=== PATIENT | female | born 1945 | race Caucasian/White ===

== ENCOUNTER 2017-08-13 19:47 | Emergency (ER) | payer MEDICARE, MEDICAID ==
[2017-08-13 20:22] VITALS: BP 114/75
--- NOTE | 2017-08-13 20:35 | UC ---
Respiratory Complaint HPI - HPI Summary HPI Summary: C/O cough x4 days with more SOB. Need increased oxygen. Nasal congestion. No nausea but some diarrhea in colostomy bag. Some chills. - History of Current Complaint Chief Complaint: UCGeneralIllness Stated Complaint: RUNNY NOSE,FATIGUE,DIARRHEA Time Seen by Provider: 08/13/17 20:29 Hx Obtained From: Patient Onset/Duration: Sudden Onset, Lasting Days - 4, Still Present Severity Initially: Mild Severity Currently: Moderate Pain Intensity: 0 Character: Cough: Productive - clear sputum Alleviating Factors: Nothing Associated Signs And Symptoms: Positive: Chills, URI, Nasal Congestion - Allergies/Home Medications Allergies/Adverse Reactions: Allergies Allergy/AdvReac Type Severity Reaction Status Date / Time MS Latex [Latex] Allergy Hives Verified 08/13/17 20:03 MS Morphine [Morphine] Allergy Unknown Verified 08/13/17 20:03 Reaction Details MS Tetracycline AdvReac GI Upset Verified 08/13/17 20:03 [Tetracycline] Home Medications: Home Medications Antibiotic 1 tab PO SEE INSTRUCTIONS 08/13/17 [History Confirmed 08/13/17] Ascorbic Acid TAB* [Vitamin C TAB*] 500 mg PO DAILY 08/13/17 [History Confirmed 08/13/17] Cyanocobalamin TAB* [Vitamin B12 TAB*] 250 mcg PO DAILY 08/13/17 [History Confirmed 08/13/17] Levalbuterol HFA INHALER* [Xopenex Hfa Inhaler*] 2 puff INH Q4H PRN 08/13/17 [ History Confirmed 08/13/17] Magnesium Oxide TAB* [MagOx 400 TAB*] 400 mg PO DAILY 08/13/17 [History Confirmed 08/13/17] Umeclidin/Vilant 62.5 MDI(NF) [ANORO 62.5/25 Ellipta DEVICE (NF)] 1 inh INH DAILY 08/13/17 [History Confirmed 08/13/17] PMH/Surg Hx/FS Hx/Imm Hx Respiratory History: COPD - Surgical History Surgical History: Yes Surgery Procedure, Year, and Place: ILEOSTOMY AND REVERSAL; RESECTION/COLOSTOMY ; R ROTOR CUFF SX; CYST REMOVED FROM RIGHT FOOT(NEUROMA? REMOVED FROM LEFT FOOT) ; CARPAL TUNNEL RELEASE RIGHT HAND. REMOVAL OF SKIN CANCERS FROM RIGHT SHOULDER AND NOSE. [facility]--2015 - Family History Known Family History: Positive: Diabetes - Social History Occupation: Retired Alcohol Use: None Substance Use Type: None Smoking Status (MU): Former Smoker Length of Time of Smoking/Using Tobacco: APPROX 45 YRS Have You Smoked in the Last Year: Yes When Did the Patient Quit Smoking/Using Tobacco: 06/2014 - Immunization History Most Recent Influenza Vaccination: SEVERL YRS AGO Most Recent Tetanus Shot: UNKNOWN Most Recent Pneumonia Vaccination: WITHIN 5 YRS Review of Systems Constitutional: Chills ENT: Nasal Discharge Respiratory: Shortness Of Breath, Cough Gastrointestinal: Diarrhea Is Patient Immunocompromised?: No All Other Systems Reviewed And Are Negative: Yes Physical Exam Triage Information Reviewed: Yes Appearance: No Pain Distress, Well-Nourished, Ill-Appearing - mild Vital Signs: Initial Vital Signs Temp 98.2 F 08/13/17 20:14 Pulse 98 08/13/17 20:14 Resp 20 08/13/17 20:14 BP 114/75 08/13/17 20:14 Pulse Ox 94 08/13/17 20:14 Vital Signs Reviewed: Yes Eyes: Positive: Conjunctiva Clear ENT: Positive: Pharynx normal, TMs normal Neck exam: Normal Respiratory: Positive: Decreased breath sounds, Wheezing - diffuse expiratory wheeze Cardiovascular Exam: Normal Musculoskeletal Exam: Normal Neurological Exam: Normal Psychological Exam: Normal Skin: Positive: rashes - psoriasis UC Diagnostic Evaluation - Laboratory O2 Sat by Pulse Oximetry: 94 Respiratory Course/Dx - Differential Dx/Diagnosis Differential Diagnosis/HQI/PQRI: Bronchitis, Exacerbation Of COPD, Lower Resp Infection, Sinusitis Provider Diagnoses: Acute URI. COPD with acute exacerbation. Discharge - Discharge Plan Condition: Stable Disposition: HOME Prescriptions: Albuterol 2.5MG/3ML (0.083%)* [Ventolin 2.5 MG/3 ML NEB.ANGELY*] 2.5 mg INH Q6H PRN #25 neb.angely PRN Reason: Wheezing Ipratropium 0.5MG/2.5ML NEB* [Atrovent 0.5 MG NEB.ANGELY*] 0.5 mg INH Q6H PRN #25 neb.soln PRN Reason: Sob/Wheezing predniSONE TAB* [Deltasone TAB*] 20 mg PO DAILY #18 tab Sulfamethox/Trimethoprim DS* [Bactrim DS 800/160 TAB*] 1 tab PO BID #20 tab Patient Education Materials: Upper Respiratory Infection (ED), Emphysema (ED), Prednisone (By mouth), Sulfamethoxazole/Trimethoprim (By mouth) Referrals: Jesus Landrum MD [Primary Care Provider] - 5 Days (Recheck breathing.)
[2017-08-13] MEDS ORDERED: predniSONE TAB* 20 MG PO ONE (20:38)
[2017-08-13] MEDS ORDERED: Albuterol/Ipratropium NEB.SOL* Albuterol 2.5 MG/Ipratropium 0.5 MG 3 ML INH ONE (20:38)
[2017-08-13] MEDS ORDERED: Sulfamethox/Trimethoprim DS 800/160* TAB PO ONE (20:38)
== END 2017-08-13 21:19 | disposition home or self-care (01) ==
LOC: UCCORT 19:47
DX: J06.9 Acute upper respiratory infection, unspecified (principal); J44.1 Chronic obstructive pulmonary disease with (acute) exacerbation; Z88.8 Allergy status to other drugs, medicaments and biological substances; Z88.1 Allergy status to other antibiotic agents; Z91.040 Latex allergy status
CPT/HCPCS: 99213; A9270-GY; G0463; J7512

== ENCOUNTER 2018-06-03 20:32 | Emergency (ER) | payer MEDICARE, MEDICAID ==
[2018-06-03 20:45] VITALS: BP 91/69
--- NOTE | 2018-06-03 21:16 | UC ---
Syncope/New Syncope HPI - HPI Summary HPI Summary: fell 2 nights ago has right rib pain---no memory of fall of any complaints prior to fall - History Of Current Complaint Chief Complaint: UCGeneralIllness Stated Complaint: RIB INJ,S/P FALL 2 AM WED Time Seen by Provider: 06/03/18 20:34 Hx Obtained From: Patient ?: No Onset/Duration: Sudden Onset, Lasting Days - 2 Activity At Onset: At Rest Timing: Constant Frequency: Episodes x___ - 1 Context: Unwitnessed Associated Head Trauma: No Pain Intensity: 10 Pain Scale Used: 0-10 Numeric Aggravating Factor(s): Nothing Alleviating Factor(s): Nothing Associated Signs And Symptoms: Positive: Diarrhea, Pain, Shortness Of Breath - Allergies/Home Medications Allergies/Adverse Reactions: Allergies Allergy/AdvReac Type Severity Reaction Status Date / Time MS Latex [Latex] Allergy Hives Verified 08/13/17 20:03 MS Morphine [Morphine] Allergy Unknown Verified 08/13/17 20:03 Reaction Details MS Tetracycline AdvReac GI Upset Verified 08/13/17 20:03 [Tetracycline] Home Medications: Home Medications Amitriptyline TAB* [Elavil TAB*] 25 mg PO BEDTIME 06/03/18 [History Confirmed ] Azithromycin TAB* [Zithromax TAB (Z-CHICHO) 250 mg #6 tabs] 250 mg PO SEE INSTRUCTIONS 06/03/18 [History Confirmed 06/03/18] Fluticasone NASAL SPRAY 50MCG* [Flonase NASAL SPRAY 50MCG*] 2 spray BOTH NARES DAILY PRN 06/03/18 [History Confirmed 06/03/18] LevoCETirizine TAB (NF) [Xyzal TAB (NF)] 5 mg PO DAILY PRN 06/03/18 [History Confirmed 06/03/18] PMH/Surg Hx/FS Hx/Imm Hx Previously Healthy: No Cardiovascular History: Congestive Heart Failure Respiratory History: COPD - Surgical History Surgical History: Yes Surgery Procedure, Year, and Place: ILEOSTOMY AND REVERSAL; RESECTION/COLOSTOMY ; R ROTOR CUFF SX; CYST REMOVED FROM RIGHT FOOT(NEUROMA? REMOVED FROM LEFT FOOT) ; CARPAL TUNNEL RELEASE RIGHT HAND. REMOVAL OF SKIN CANCERS FROM RIGHT SHOULDER AND NOSE. [facility]--2014 - Family History Known Family History: Positive: Diabetes - Social History Occupation: Retired Lives: Alone Alcohol Use: Rare Substance Use Type: None Smoking Status (MU): Former Smoker Length of Time of Smoking/Using Tobacco: APPROX 45 YRS Have You Smoked in the Last Year: Yes When Did the Patient Quit Smoking/Using Tobacco: 06/2014 - Immunization History Most Recent Influenza Vaccination: SEVERL YRS AGO Most Recent Tetanus Shot: UNKNOWN Most Recent Pneumonia Vaccination: WITHIN 5 YRS Review of Systems All Other Systems Reviewed And Are Negative: Yes Constitutional: Positive: Negative Skin: Positive: Negative Eyes: Positive: Negative ENT: Positive: Negative Respiratory: Positive: Shortness Of Breath Cardiovascular: Positive: Negative Gastrointestinal: Positive: Diarrhea Genitourinary: Positive: Negative Motor: Positive: Negative Neurovascular: Positive: Negative Musculoskeletal: Positive: Arthralgia Neurological: Positive: Negative Psychological: Positive: Negative Is Patient Immunocompromised?: No Physical Exam Triage Information Reviewed: Yes Appearance: Well-Nourished, Ill-Appearing, Pain Distress Vital Signs: Initial Vital Signs Temp 97.1 F 06/03/18 20:40 Pulse 108 06/03/18 20:40 Resp 20 06/03/18 20:40 BP 91/69 06/03/18 20:40 Pulse Ox 99 06/03/18 20:40 Vital Signs Reviewed: Yes Eye Exam: Normal Eyes: Positive: Conjunctiva Clear ENT Exam: Normal ENT: Positive: Normal ENT inspection, Hearing grossly normal. Negative: Trismus , Muffled voice, Hoarse voice Dental Exam: Normal Neck exam: Normal Neck: Positive: Supple, Nontender Respiratory: Positive: Lungs clear, Normal breath sounds, No respiratory distress, No accessory muscle use, Other: - right chest wall tender to touch. Negative: Chest non-tender Cardiovascular: Positive: No Murmur, Pulses Normal, Brisk Capillary Refill, Tachycardia Abdominal Exam: Normal Abdomen Description: Positive: Nontender, No Organomegaly, Soft Bowel Sounds: Positive: Present Musculoskeletal Exam: Normal Musculoskeletal: Positive: Strength Intact, ROM Intact, No Edema Neurological Exam: Normal Neurological: Positive: Alert, Muscle Tone Normal Psychological Exam: Normal Skin Exam: Normal Diagnostics - EKG Cardiac Rate: Tachycardia Cardiac Rhythm: Sinus: Normal Ectopy: None ST Segment: Non-Specific EKG Comparison: No Significant Change Syncope Course/Dx - Course Course Of Treatment: to ED with friend driving (refused EMS) - Differential Dx/Diagnosis Provider Diagnosis: Syncope, Hypotension, Diarrhea, Rib pain on right side Discharge - Sign-Out/Discharge Documenting (check all that apply): Patient Departure All imaging exams completed and their final reports reviewed: No Studies - Discharge Plan Condition: Guarded Disposition: HOME-RECOMMEND TO ED Patient Education Materials: Syncope (ED) Referrals: Jesus Landrum MD [Primary Care Provider] - - Billing Disposition and Condition Condition: GUARDED Disposition: Home-Recommend to ED
== END 2018-06-03 21:13 | disposition home health service (06) ==
LOC: UCCORT 20:32
DX: R55 Syncope and collapse (principal); I95.9 Hypotension, unspecified; R19.7 Diarrhea, unspecified; Z88.5 Allergy status to narcotic agent; Z88.1 Allergy status to other antibiotic agents; Z87.891 Personal history of nicotine dependence; Z85.828 Personal history of other malignant neoplasm of skin
CPT/HCPCS: 99212; G0463

== ENCOUNTER 2018-06-12 18:29 | Emergency (ER) | payer MEDICARE, MEDICAID ==
[2018-06-12] MEDS ORDERED: diPHENhydraMINE PO* 25 MG PO ONE (18:33)
[2018-06-12] MEDS ORDERED: methylPREDNISolone 125 MG* 2 ML VIAL IM ONE (18:33)
[2018-06-12 18:34] VITALS: BP 134/80
--- OUTSIDE RECORDS SUMMARY | 2018-06-12 18:45 | XMS REPORT | Continuity of Care Document ---
:1945 External Reference #:[id number] Author Name Jesus Landrum M.D. Address [address] [facility] [address] [place] [address] Care Team Providers Name Role Phone Jesus Landrum MD Care Team Information Site Head Unavailable Payers Type Date Identification Numbers Payment Provider Subscriber Expires: 2018 Policy Number: [id number] Medicare Mirtha V Machado PayID: [id number] [address] [place] [address] Effective: 2008 Policy Number: [id number] Medicare Mirtha V Machado PayID: [id number] [address] [place] [address] Policy Number: [id number] Medicaid After Medicare Mirtha Mayas Group Name: 2 1 [id number] [facility] PayID: [id number] [place] [address] Advance Directives Description No Information Available Problems Date Description Provider Status Onset: 09/02/2011 Degeneration of cervical Jesus Landrum M.D. Active intervertebral disc Onset: 09/02/2011 Neck pain Jesus Landrum M.D. Active Onset: 09/02/2011 Anxiety state Jesus Landrum M.D. Active Onset: 09/02/2011 Chronic obstructive lung disease Jesus Landrum M.D. Active Onset: 09/02/2011 Osteoarthritis Jesus Landrum M.D. Active Onset: 09/06/2011 Low back pain Jesus Landrum M.D. Active Onset: 09/06/2011 Colostomy and enterostomy Anupam Soto Active malfunction Onset: 09/12/2012 Congestive heart failure Jesus Landurm M.D. Active Onset: 09/12/2012 Edema Jesus Landrum M.D. Active Onset: 11/02/2013 Wears bifocal glasses Jesus Landrum M.D. Active Onset: 11/02/2013 Contact dermatitis Jesus Landrum M.D. Active Onset: 11/02/2013 Allergic rhinitis Jesus Landrum M.D. Active Onset: 11/02/2013 Shoulder joint pain Jesus Landrum M.D. Active Onset: 04/30/2014 Hypokalemia Jesus Landrum M.D. Active Onset: 04/30/2014 Disorder of magnesium metabolism Jesus Landrum M.D. Active Onset: 04/30/2014 Depressive disorder Jesus Landrum M.D. Active Onset: 04/30/2014 Acute exacerbation of chronic Jesus Landrum M.D. 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 Resolved Resolved: 08/08/2014 Family History Date Family Member(s) Problem(s) Comments Father due to at age 84 () Father due to Unknown Causes () Mother due to Unknown Causes () Mother due to at age 58 () Children 4 living Children 2 miscarages Children 3 lost to sids First Son Hypertension First Son 52 Second Son 48 Second Son Alcoholism First Daughter No Current Problems First Daughter 42 Second Daughter 38 Siblings 7 First Brother 65 First Brother Diabetes First Brother Rheumatoid Arthritis First Brother Leukemia First Sister Breast Cancer Second Sister partial removal of intestines Social History Type Date Description Comments Sex Unknown Marital Status Legal Status: ETOH Use Denies alcohol use Tobacco Use Start: Unknown End: Unknown Patient is a former smoker Allergies, Adverse Reactions, Alerts Date Description Reaction Status Severity Comments 09/02/2011 Morphine Active 09/02/2011 Tetracycline Active 03/30/2013 Latex Active Medications Medication Date Status Form Strength Qnty SIG Indications Ordering Provider Oxycodone-[place] Active Tablets 5-325mg 45tabs 1 tab by R07.9 Diallo taminophen 018 mouth Jesus Morrison, three M.D. times a day as needed Vancomycin Hx Capsules 125mg 1 cap by A04.71 Diallo, HCL 018 - mouth Jesus Morrison, four M.D. 018 times a day Sertraline Active Tablets 50mg 30tabs Take One F41.9 Diallo, HCL 018 Tablet By Jesus Morrison, Mouth M.D. Every Day Trelegy Active Aerosol 100-62.5-25 1 by Rebekah44.9 Diallo Ellipta 018 mcg/Inh mouth Jesus Morrison, every M.D. day-Pulmo nary J44.9 J44.1 Aircondition 12/13/2017 Active PT with h/O Jesus [place] severe COPD Tobi Morrison Anoro Ellipta 08/18/2017 Active Aerosol 62.5-25 60units 1 by mouth R06.02 Kamala Landrummad mcg/Inh every M., M.D. day-Pulmonar y Rosalva.Mona J44.1 Lotrisone 04/26/2017 Active Cream 1-0.05% 45gm apply small B35.4 Kamala Landrummad amount to Tobi Morrison affected area every 12 hours for 2 weeks Portable O2 08/20/2016 Active use during out JHunter.9 Kamala Landrummad Concentrators. of home Tobi Morrison activity jHunter.Mona,r09.02,r 06.02 R09.02 R06.02 Amitriptyline HCL 03/11/2016 Active Tablets 25mg 90tabs Take One R10.84 Diallo, Tablet By Jesus Morrison Mouth M.DRobert Every Day Walker [place] 11/12/2015 Active Misc -06/27" 1units use as M15.9 Diallo, Wheels/5 directed( Jesus Morrison, Adjustment abbie Britton -06/27" with wheels,bra kes and basket) DX :M15.9,J44 .9 Xopenex HFA 10/03/2015 Active Aerosol 45mcg/Ac 30gm 2 puffs R06.02 Diallo, t every 4 Jesus Morrison, hours as M.D. needed J44.1 J44.9 Manual 03/05/2015 Active 1units use as directed dx:r26.8 M25.552 Diallo, Wheel 9,r26.81,m25.522,m79.606 Jesus Morrison, Chair m15.9,i50.42 M.D. R29.898 Pep Device 10/08/2014 Active 1units use as directed R06.02 Jesus Landrum M.D. Incentive 10/01/2014 Active use as directed R06.02 Jesus Landrum Spirometer Tobi Morrison R05 J44.9 Ammonium Lactate 08/08/2014 Active Cream 12% 385gm apply to L20.9 Diallo , Ahmad affected area Tobi Morrison twice a day as needed L23.9 Potassium 04/24/2014 Active Tablets ER 10Meq 90tabs Take One E87.6 Diallo, Chloride ER Tablet By Jesus Morrison, Mouth Every M.D. Day I50.42 Conserving Oxygen 08/21/2013 Active at setting of 2 J44.1 Jesus Landrum, Device liters M.DRobert J44.9 Magnesium 03/02/2013 Active Tablets 400(241.3mg) mg 90tabs Take One E83.42 Diallo, Oxide Tablet Ahmad By Mouth M.PrinceDRobert Every Day Tums Ultra 07/27/2012 Active Chewtabs 1000mg 1 by M81.0 Diallo, 1000 mouth Ahmad twice a M., M.D. day Furosemide 07/27/2012 Active Tablets 20mg 90tabs Take One I50.42 Diallo, Tablet Ahmad By Mouth Prince MorrisonDRobert Every Day R60.0 Clobetasol 04/03/2012 Active Ointment 0.05% 60gm apply to L40.9 Diallo, Propionate affected arae( Ahmad M., abd.and arms M.D. and legs) twice a day as needed L20.9 Xanax 10/14/2011 Active Tablets 0.5mg 45tabs 1 tab by F41.9 Diallo, mouth three Ahmad M., times a day M.D. as needed Multi 09/02/2011 Active Tablets Diallo, Vitamin/[place] Jesus Morrison, als Full Luis M.Andrew Spectrum Vitamin B-12 09/02/2011 Active Tablets ER 1000mcg 1 every day D51.1 Diallo, CR Jesus Morrison M.D. 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 a b s Prednisone 05/18/2018 Hx Tablets 20mg 2 2 tab by mouth J20.9 Diallo, - 0 daily 4 Ahmad 06/02/2018 t days,30x3d,20x2d Tobi Morrison a ,10x7d b s Prednisone 03/30/2018 Hx Tablets 20mg 2 2 tab by mouth J20.9 Diallo, - 0 daily 4 Ahmad 04/05/2018 t days,30x3d,20x2d Tobi Morrison a ,10x7d b s Ciprofloxacin 03/30/2018 Hx Tablets 500mg 2 1 by mouth twice J20.9 Diallo, HCL - 0 a day Ahmad 04/10/2018 kyle Morrison M.D. a b s Methylprednisol 03/30/2018 Hx Solution 125mg J20.9 Diallo, one - Rec Ahmad Sodiumsuccinate 03/31/2018 Tobi Morrison Amoxicillin 03/07/2018 Hx Tablets 500mg 3 1 by mouth three J01.40 Diallo , - 0 times a day Ahmad 03/17/2018 Tobi Jean Baptiste b s Prednisone 03/07/2018 Hx Tablets 20mg 8 2 tab by mouth J01.40 Diallo, - t daily 4 days Ahmad 03/10/2018 Tobi Geronimo Amoxicillin 11/03/2017 Hx Tablets 500mg 3 1 by mouth three E55.9 Diallo, - 0 times a day Ahmad 11/13/2017 Tobi Jean Baptiste b s Bactrim DS 11/01/2017 Hx Tablets 800-160mg 2 1 tab by mouth E55.9 Diallo , - 0 twice a day Ahmad 11/03/2017 Tobi Jean Baptiste b s Prednisone 11/01/2017 Hx Tablets 20mg 8 2 tab by mouth E55.9 Diallo, - t daily 4 days Ahmad 11/04/2017 Tobi Geronimo s Zoloft 11/01/2017 Hx Tablets 50mg 3 1 by mouth every F41.9 Diallo, - 0 day Ahmad 04/25/2018 kyle Morrison M.D. a b s Amoxicillin 09/02/2017 Hx Tablets 500mg 4 2 by mouth twice J44.9 Diallo, - 0 a day Ahmad 09/12/2017 kyle Morrison M.D. a b s Bupropion HCL 08/18/2017 Hx Tablets ER 150mg 3 Take One Tablet E55.9 Diallo, ER (XL) - 24HR 0 By Mouth Every Ahmad 11/01/2017 t Rossy Morrison M.D. a b s Phendimetrazine 04/26/2017 Hx Tablets 35mg 6 1 tab by mouth E66.3 Diallo , Tartrate - 0 twice a day Ahmad 07/01/2017 kyle Morrison M.D. a b s Fluconazole 04/14/2017 Hx Tablets 150mg 2 1 tab by mouth J44.9 Diallo, - t and october Ahmad 04/19/2017 a repeat in 1 week Tobi Morrison b s Prednisone 03/03/2017 Hx Tablets 20mg 2 2 tab by mouth J44.9 Diallo, - 0 daily 4 Ahmad 03/17/2017 t days,30x3d,20x2d Tobi Morrison a ,10x7d b s Amoxicillin 03/03/2017 Hx Tablets 500mg 4 2 by mouth twice J44.9 Diallo, - 0 a day Ahmad 03/13/2017 t Tobi Morrison a b s Prednisone 01/11/2017 Hx Tablets 10mg 6 Take 1 Tablet By J44.9 Diallo, - 0 Mouth Three Ahmad 08/18/2017 t Times Per Week Tobi Morrison a b s Azithromycin 12/09/2016 Hx Tablets 250mg 1 1 tab by mouth J44.9 Diallo, - 4 three times a Ahmad 03/20/2017 t wk-pulmonary Tobi Morrison a b s Prednisone 10/12/2016 Hx Tablets 20mg 2 2 tab by mouth J44.9 Diallo, - 0 daily 4 Ahmad 10/17/2016 t days,30x3d,20x2d Tobi Morrison a ,10x7d b s Azithromycin 10/12/2016 Hx Tablets 500mg 1 1 by mouth every Diallo, - 0 day Ahmad 10/17/2016 t Tobi Morrison a b s Amoxicillin 09/21/2016 Hx Tablets 500mg 6 2 tab by mouth J44.9 Diallo, - 0 twice a day X10d Ahmad 10/17/2016 t then 1 tab po Tobi Morrison a daily b s E55.9 Prednisone 09/21/2016 - Hx Tablets 20mg 20tabs 2 tab by mouth daily 4 J44.9 Diallo, 10/07/2016 days,30x3d,20x2d,10x7d Ahmad Tobi Morrison Prednisone 08/13/2016 - Hx Tablets 20mg 20tabs 2 tab by mouth daily 4 J44.9 Diallo, 08/28/2016 days,30x3d,20x2d,10x7d Ahyolette Morrsion M.D. Amoxicillin 08/03/2016 - Hx Tablets 500mg 60tabs 2 tab by mouth twice a J44.9 [facility], 08/18/2016 day X10d then 1 tab po Ahmad daily Tobi Morrison E55.9 Diflucan 08/03/2016 - Hx Tablets 100mg 20tabs 1 by mouth [facility], [facility] 08/13/2016 twice a day Tobi Morrison Amoxicillin 07/13/2016 - Hx Tablets 500mg 60tabs 2 tab by J44.9 [facility], [facility] 08/01/2016 mouth three Tobi Morrison times a day E55.9 Bactrim DS 07/08/2016 - Hx Tablets 800-160mg 20tabs 1 tab by J44.9 [facility] mouth twice Tobi Morrison a day Prednisone 07/08/2016 - Hx Tablets 20mg 20tabs 2 tab by 44.9 [facility] 07/[facility]2016 mouth daily Tobi Morrison 4 days,30x3d, 20x2d,10x7d Amoxicillin 06/22/2016 - Hx Tablets 500mg 60tabs 2 tab by 44.9 [facility] 07/[facility]2016 mouth three Tobi Morrison times a day E55.9 Prednisone 06/22/2016 - Hx Tablets 20mg 18tabs 2 tab by mouth daily 4 J44.9 [facility], 07/05/2016 days, 30 Ahmad mgx3d,[id number],67ywe7h Tobi Morrison Azithromycin 05/31/2016 - Hx Tablets 500mg 10tabs 1 by mouth every day [facility], 06/10/2016 Jesus Morrison M.D. Cipro 05/20/2016 - Hx Tablets 500mg 20tabs 1 tab by mouth twice a J44.9 [facility], 05/21/2016 day Jesus Morrison M.D. Prednisone 05/20/2016 - Hx Tablets 20mg 20tabs 2 tab by mouth daily 4 R06.02 [facility], 06/04/2016 days,30x3d,20x2d,10x7d Tobi Klein E55.Mona Amoxicillin 05/20/2016 - Hx Tablets 500mg 60tabs 2 tab by Omero [facility] 05/29/2016 mouth three Tobi Morrison times a day E55.9 Cipro 02/06/2016 - Hx Tablets 500mg 30tabs 1 tab by mouth Omero [facility], 02/18/2016 twice a day Jesus Morrison M.D. Lotrisone 02/06/2016 - Hx Cream 1-0.05% 45gm apply small [facility], 08/03/2016 amount to angie Klein M.D. every 12 hours for 2 weeks Zoloft 02/06/2016 - Hx Tablets 50mg 90tabs 1 by mouth F33.9 [facility], 02/19/2016 every day Jesus Morrison M.D. Cipro 01/15/2016 - Hx Tablets 500mg 20tabs 1 tab by mouth Omero [facility], 01/25/2016 twice a day Jesus Morrison M.D. Prednisone 12/04/2015 - Hx Tablets 20mg 20tabs 2 tab by mouth R06.02 [facility], 12/18/2015 daily 4 Jesus Morrison, days,30x3d,20x M.D. 2d,10x7d Omero E55.9 Amoxicillin 12/04/2015 - Hx Tablets 500mg 60tabs 2 tab by Omero [facility] 12/14[facility]2015 mouth three Tobi Morrison times a day E55.9 Wheelchair 12/04/2015 - Hx Misc 1units Use For R26.89 [facility], [facility] 06/20/2016 Terry Morrison M.D. Amoxicillin 10/30/2015 - Hx Tablets 500mg 60tabs 2 tab by mouth Omero [facility] 11/09/2015 three times a Tobi Morrison day E55.9 Prednisone 10/30/2015 - Hx Tablets 20mg 20tabs 2 tab by mouth daily 4 R06.02 [facility], 11/13/2015 days,30x3d,20x2d,10x7d Tobi Klein9 E55.9 Stiolto 10/03/2015 - Hx Aerosol 2.5-2.5mcg/Act 12gm two puffs Omero [facility], [facility]02/2018 [facility] M.DRobert Jamil J44.1 Amoxicillin 07/29/2015 - Hx Tablets 500mg 60tabs 2 tab by Omero [facility] 08/08/2015 mouth three Tobi Morrison times a day Levaquin 06/26/2015 - Hx Tablets 500mg 10tabs 1 by mouth Omero [facility], [facility] 07/06/2015 every day Tobi Morrison Prednisone 06/26/2015 - Hx Tablets 20mg 20tabs 2 tab by R06.02 [facility] 07/22/2015 mouth daily Tobi Morrison 4 days,30x3d,2 0x2d,10x7d JRoselia9 Tramadol HCL 06/26/2015 - Hx Tablets 50mg 90tabs 1 by mouth M25.552 [facility] 10/18/2017 every 4 M., Luis M.D. hours as needed M54.5 M54.2 Levaquin 04/03/2015 - Hx Tablets 500mg 10tabs 1 by mouth J44Lazarus [facility], 04/13/2015 every day Jesus Morrison M.D. Hydrocodone-Ac 03/03/2015 - Hx Tablets 7.5-325mg 90tabs 1-2 tab by M54.5 [facility], etaminophen 04/01/2015 mouth every [facility] Prince, 4 hours as M.D. needed M25.511 M25.552 Prednisone 02/10/2015 - Hx Tablets 20mg 50tabs 2 tab by mouth daily 4 843.0 [facility], 03/01/2015 days,30x3d,20x2d,10x7d Jesus Morrison M.D. Azithromycin 11/07/2014 - Hx Tablets 250mg 12tabs take two tablets by 491.21 [facility], 11/17/2014 mouth as one dose on Ahmad the first day then take M., one daily M.DRobert 382.9 461.8 Prednisone 10/08/2014 - Hx Tablets 20mg 20tabs 2 tab by mouth daily 4 491.21 Diallo, 11/22/2014 days,30x3d,20x2d,10x7d Jesus Morrison M.D. 496 786.05 Diflucan 07/23/2014 - Hx Tablets 100mg 20tabs 1 by mouth 112.1 [facility] 08[facility]2014 twice a day Tobi Morrison 110.5 Cipro 07/09/2014 - Hx Tablets 500mg 20tabs 1 by mouth 491.21 [facility] 10/21/2014 twice a day Tobi Morrison 466.0 461.9 Tamiflu 07/09/2014 - Hx Capsules 75mg 10caps 1 cap by [facility], 07/14/2014 mouth twice a Jesus Morrison, day M.D. Azithromycin 04/30/2014 - Hx Tablets 250mg 1pack z ze uad 491.2 Diallo, 06/23/2014 1 Jesus Morrison M.D. Lotrisone 01/24/2014 - Hx Cream 1-0.05% 45gm apply small 110.5 [facility], 07/22/2014 amount to angie Klein area M.DRobert every 12 hours for 2 weeks 112.1 Avelox 01/22/2014 - Hx Tablets 400mg 7tabs TAke 1 tablet 491.1 Artemio 02/19/2014 by mouth for JOHN Colby 7 days Prednisone 01/22/2014 - Hx Tablets 20mg 14tabs take 2 491.21 [facility] 06/[facility]2014 tablets by Tobi Morrison mouth once daily for 7 days 478.19 786.05 K-Tab 11/02/2013 - Hx Tablets ER 10Meq 60tabs 2 tabs by 276.8 Earnestine Ulloa, 04/24/2014 mouth 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 Rolling Walker 08/20/2013 - Hx 1uni uad M15.9 Diallo, With Seat 11/12/2015 ts Jesus Morrison M.D. Nystatin 08/20/2013 - Hx Powder 244546Cgx 45gm apply to 110.3 Diallo, 10/18/2013 t/GM clean, dry Jesus Morrison, areas bid M.DRobert prn. 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 Tobi Morrison Prednisone 05/03/2013 - Hx Tablets 20mg 20tabs 2 tab by 491.21 Diallo, Ahmad 05/19/2013 mouth daily Tobi Morrison 4 days,30x3d, 20x2d,10x7d 491.21 786.05 Clarithromycin 05/03/2013 - Hx Tablets 500mg 20tabs 1 po bid 491.21 Diallo, Ahmad 06/23/2014 Tobi Morrison 491.21 Zyrtec Allergy 05/03/2013 - Hx Tablets 10mg 30tabs 1 by mouth J30.2 Diallo, Ahmad 01/18/2018 every day Tobi Morrison Clarithromycin 03/30/2013 - Hx Tablets 500mg 20tabs 1 po bid 461.9 Diallo, mad 04/09/2013 Tobi Morrison 491.21 Prednisone 03/30/2013 - Hx Tablets 20mg 20tabs 2 tab by mouth daily 4 461.9 Diallo, 04/17/2013 days,30x3d,20x2d,10x7d Jesus Morrison M.D. 491.21 786.05 Solu-Medrol 03/30/2013 - Hx Solution Rec 125mg 1units given L 491.21 Diallo, 03/31/2013 deltoid Jesus Morrison M.D. Klor-Con 10 03/30/2013 - Hx Tablets ER 10Meq 60tabs 2 tabs by 790.6 Diallo, 05/03/2013 mouth qd Jesus Morrison M.D. Biaxin 03/01/2013 - Hx Tablets 500mg 20tabs 1 tab by 786.05 Diallo, 03/11/2013 mouth twice Jesus Morrison, a day x10 M.DRobert days 466.0 Sulfamethoxazole/Trimethoprim 02/28/2013 Hx Tablets 800-160mg 20tabs 1 po 682.8 Diallo, DS - bid Ahmad 03/01/2013 Tobi Morrison Klor-Con M20 02/22/2013 Hx Tablets 20Meq 30tabs 1Tab 276.8 Diallo, - ER PO mad 03/30/2013 irwin Gomez M.D. Pulmonary Function Testing 02/21/2013 Hx as 491.21 [facility], - dire Ahmad 05/22/2013 ramos Morrison M.D. Prednisone 02/12/2013 Hx Tablets 20mg 18tabs 2 491.21 [facility], - tab mad 03/03/2013 by tha Morrison M.D. h ailyn y 4 days ,30x 3d,2 0x2d ,10x 7d Azithromycin 02/12/2013 Hx Tablets 250mg 1Pack 2 po 491.21 [facility], - toda mad 02/17/2013 y gena Morrison M.D. 1 po next 4 days Biaxin 01/05/2013 Hx Tablets 500mg 20tabs 1 786.05 [facility], - tab mad 01/19/2013 by tha Morrison M.D. h twic e a day x10 days 466.0 Hydrocodone/Acetaminophen 01/05/2013 - Hx Tablets 5-325mg 90tabs 1-2 723.1 Diallo, 02/19/2013 tabs po Ahmad q 4-6 Tobi Morrison hours prn pain 724.2 Medrol Dosepak 01/05/2013 - Hx Tablets 4mg 1Pack take as 786.05 [facility], 01/12/2013 directed Jesus Morrison M.D. Lipitor 12/12/2012 - Hx Tablets 20mg 30tabs 1 Tab PO QHS 272.0 [facility], 12/18/2012 Jesus Morrison M.D. Paxil 09/12/2012 - Hx Tablets 20mg 30tabs 1 by mouth 300.00 Diallo, 09/26/2012 every day Jesus Morrison M.D. Prednisone 08/29/2012 - Hx Tablets 20mg 30tabs 1/2 tab by 491.21 Diallo, 11/20/2012 mouth every Jesus Morrison, day Qday Tobi 496 Biaxin 08/29/2012 - Hx Tablets 500mg 20tabs 1 tab by Diallo yolette 12/04/2012 mouth twice Tobi Morrison a day x10 days Biaxin 07/25/2012 - Hx Tablets 500mg 20tabs 1 tab by 491.21 Diallo, Jesus 08/05/2012 mouth twice Tobi Morrison a day x10 days Biaxin 07/13/2012 - Hx Tablets 500mg 20tabs 1 tab by 491.21 Diallo, mad 07/24/2012 mouth twice Tobi Morrison a day x10 days Prednisone 07/13/2012 - Hx Tablets 20mg 20tabs 2 tab by 491.21 Diallo, maelio 11/24/2012 mouth daily Tobi Morrison 4 days,30x3d,2 0x2d,10x7d 478.19 786.05 Solu-Medrol 07/13/2012 - Hx Solution Rec 125mg given r 491.21 Diallo, 07/14/2012 deltoid Jesus Morrison M.D. Ceftriaxone 07/13/2012 - Hx Solution Rec 1gm given r 491.21 Diallo, Sodium 07/13/2012 buttock im Jesus Morrison M.D. Effexor XR 04/17/2012 - Hx Caps ER 24HR 37.5mg 30ca 1 po qd Diallo, 07/13/2012 ps Jesus Morrison M.D. Lovaza 04/05/2012 - Hx Capsules 1gm 60ca 1 PO bid Diallo, 11/20/2012 ps Jesus Morrison M.D. Nicoderm CQ 04/03/2012 - Hx Patches 24HR 21mg/24HR 21un use as Diallo, 07/13/2012 its directed Jesus Morrison M.D. Lasix 04/03/2012 - Hx Tablets 20mg 30ta 1 by mouth Diallo, 07/13/2012 bs every day Jesus Morrison M.D. Zithromax Z-Ze 03/10/2012 - Hx Tablets 250mg 1Pac 1 pack use 786.2 Diallo, 07/11/2012 k as directed Jesus Morrison M.D. Tessalon 03/10/2012 - Hx Capsules 200mg 30ca 1 po tid prn 786.2 Diallo, 07/13/2012 ps cough x 10 Jesus Morrison, days Luis M.DRobert Prednisone 03/10/2012 - Hx Tablets 20mg 60ta 2 tab by 491.21 Diallo, 07/23/2012 bs mouth daily Austenelio Luis M., 4 M.D. days,30x3d,2 0x2d,10x7d Biaxin 01/04/2012 - Hx Tablets 500mg 20ta 1 tab by 491.21 [facility], 01/14/2012 bs mouth twice Ahmad M., a day x10 M.D. days Prednisone 01/04/2012 - Hx Tablets 20mg 50ta 2 tab by 491.21 [facility], 01/14/2012 bs mouth daily Ahmad M., 4 M.D. days,30x3d,2 0x2d,10x7d Lotrisone 01/04/2012 - Hx Cream 1-0.05% 45gm apply to 110.5 Diallo, 09/25/2012 affected Austenelio Prince, area tid x M.D. 14 days 692.9 Hydrocodone/Acetaminophen 11/25/2011 - Hx Tablets 5-325mg 90tabs 1-2 722.4 [facility], 11/20/2012 tabs po Ahmad q 4-6 Tobi Morrison hours prn pain 723.1 724.2 Zithromax 11/25/2011 - Hx Tablets 250mg 1Pack 1 pack use as Diallo, Z-Ze 07/10/2012 directed Jesus Morrison M.D. Aspirin 09/02/2011 - Hx Tablets DR 81mg 428.0 [facility], 04/17/2012 Jesus Morrison M.D. Vitamin C SR 09/02/2011 - Hx Capsules ER 500mg 1 every day 477.8 [facility] , 07/13/2012 Jesus Morrison M.D. Zoloft 09/02/2011 - Hx Tablets 100mg 45tabs 1-2 every day 300.0 [facility], 04/17/2012 0 Jesus Morrison M.D. 311 Tramadol HCL 09/02/2011 - Hx Tablets 50mg 90tabs 1 every 4 724.2 [facility] hours Tobi Morrison 719.41 719.45 Ketoconazole 09/02/2011 - Hx Cream 2% 2 twice a 692.9 Diallo, yolette 04/03/2012 day Tobi Morrison Perforomist 09/02/2011 - Hx Nebulizer 20mcg/2ML 496 Jesus Landrum 02/19/2013 Tobi Morrison Prednisone 09/02/2011 - Hx Tablets 20mg 496 Jesus Landrum 09/12/2011 Tobi Morrison 491.21 786.05 Diflucan 09/02/2011 - Hx Tablets 100mg 20tabs 1 bid 569.69 Jesus Landrum 10/24/2011 Tobi 110.5 Medications Administered in Office Medication Date Status Form Strength Qnty SIG Indications Ordering Provider Solu-Medrol Administered Injection Diallo, 125MG Sherita Morrison M.D. B12 Administered Injection Diallo, Sherita Morrison M.D. B12 Administered Injection Diallo, Sherita Morrison M.D. B12 Administered Injection Diallo, Sherita Morrison M.D. B12 Administered Injection Diallo, Sherita Morrison M.D. B12 Administered Injection Diallo, 017 Jesus Morrison M.D. B12 Administered Injection Diallo, 017 Jesus Morrison M.D. Solu-Medrol Administered Injection Hansel, 125MG 013 JOHN Charles Solu-Medrol Administered Injection Diallo, 125MG Nathan Morrison M.D. Rocephin 250 Administered Injection Diallo, Nathan Morrison M.D. Immunizations CPT Code Status Date Vaccine Lot # [id number] Given 03/10/2011 Flu Vaccine 3+Yrs Old(Fluzone) [id number] Refused 02/21/2015 Flu Vaccine Vital Signs Date Vital Result Comment 06/06/2018 3:41pm BP Systolic 118 mmHg BP Diastolic 64 mmHg Height 61 inches 5'1" Weight 150.00 lb BMI (Body Mass Index) 28.3 kg/m2 Heart Rate 104 /min Respiratory Rate 16 /min 05/18/2018 3:41pm BP Systolic 126 mmHg BP Diastolic 70 mmHg Height 61 inches 5'1" Weight 150.00 lb BMI (Body Mass Index) 28.3 kg/m2 Heart Rate 123 /min Respiratory Rate 18 /min 03/30/2018 3:56pm BP Systolic 118 mmHg BP Diastolic 62 mmHg Height 61 inches 5'1" Weight 150.00 lb BMI (Body Mass Index) 28.3 kg/m2 Heart Rate 115 /min Respiratory Rate 16 /min 03/07/2018 3:42pm BP Systolic 128 mmHg BP Diastolic 78 mmHg Height 61 inches 5'1" Weight 152.00 lb BMI (Body Mass Index) 28.7 kg/m2 Heart Rate 102 /min Body Temperature 98.5 F Respiratory Rate 16 /min 02/02/2018 3:59pm BP Systolic 132 mmHg BP Diastolic 78 mmHg Height 61 inches 5'1" Weight 148.00 lb BMI (Body Mass Index) 28.0 kg/m2 Heart Rate 100 /min Respiratory Rate 16 /min 01/12/2018 1:10pm BP Systolic 118 mmHg BP Diastolic 68 mmHg Height 61 inches 5'1" Weight 148.00 lb BMI (Body Mass Index) 28.0 kg/m2 Heart Rate 94 /min Respiratory Rate 16 /min 12/13/2017 2:09pm BP Systolic 132 mmHg BP Diastolic 68 mmHg Height 61 inches 5'1" Weight 151.00 lb BMI (Body Mass Index) 28.5 kg/m2 Heart Rate 102 /min Respiratory Rate 18 /min 11/01/2017 2:23pm BP Systolic 140 mmHg BP Diastolic 88 mmHg Height 61 inches 5'1" Weight 153.00 lb BMI (Body Mass Index) 28.9 kg/m2 Heart Rate 99 /min Respiratory Rate 18 /min 08/18/2017 3:45pm BP Systolic 138 mmHg BP Diastolic 78 mmHg Height 61 inches 5'1" Weight 151.00 lb BMI (Body Mass Index) 28.5 kg/m2 Heart Rate 106 /min Respiratory Rate 18 /min 08/03/2017 3:08pm BP Systolic 138 mmHg BP Diastolic 72 mmHg Height 61 inches 5'1" Weight 153.00 lb BMI (Body Mass Index) 28.9 kg/m2 Heart Rate 88 /min Respiratory Rate 18 /min 07/01/2017 1:50pm BP Systolic 118 mmHg BP Diastolic 68 mmHg Height 61 inches 5'1" Weight 155.00 lb BMI (Body Mass Index) 29.3 kg/m2 Heart Rate 94 /min Respiratory Rate 16 /min 05/26/2017 1:43pm BP Systolic 126 mmHg BP Diastolic 72 mmHg Height 61 inches 5'1" Weight 152.00 lb BMI (Body Mass Index) 28.7 kg/m2 Heart Rate 73 /min Respiratory Rate 18 /min 04/26/2017 2:34pm BP Systolic 128 mmHg BP Diastolic 82 mmHg Height 61 inches 5'1" Weight 152.00 lb BMI (Body Mass Index) 28.7 kg/m2 Heart Rate 99 /min Respiratory Rate 16 /min 04/14/2017 2:10pm BP Systolic 118 mmHg BP Diastolic 68 mmHg Height 61 inches 5'1" Weight 151.00 lb BMI (Body Mass Index) 28.5 kg/m2 Heart Rate 85 /min Respiratory Rate 16 /min 03/03/2017 1:46pm BP Systolic 122 mmHg BP Diastolic 70 mmHg Height 61 inches 5'1" Weight 148.00 lb BMI (Body Mass Index) 28.0 kg/m2 Heart Rate 102 /min Respiratory Rate 18 /min 01/11/2017 2:14pm BP Systolic 124 mmHg BP Diastolic 74 mmHg Height 61 inches 5'1" Weight 148.00 lb BMI (Body Mass Index) 28.0 kg/m2 Heart Rate 78 /min Respiratory Rate 18 /min 12/09/2016 1:36pm BP Systolic 108 mmHg BP Diastolic 62 mmHg Height 61 inches 5'1" Weight 150.00 lb BMI (Body Mass Index) 28.3 kg/m2 Heart Rate 66 /min Respiratory Rate 16 /min 09/21/2016 1:56pm BP Systolic 132 mmHg BP Diastolic 72 mmHg Height 61 inches 5'1" Weight 148.00 lb BMI (Body Mass Index) 28.0 kg/m2 Heart Rate 98 /min Body Temperature 97.2 F Respiratory Rate 16 /min 09/07/2016 1:42pm BP Systolic 138 mmHg BP Diastolic 82 mmHg Height 61 inches 5'1" Weight 149.00 lb BMI (Body Mass Index) 28.2 kg/m2 Heart Rate 126 /min Respiratory Rate 20 /min 08/03/2016 3:16pm BP Systolic 140 mmHg BP Diastolic 82 mmHg Height 61 inches 5'1" Weight 150.00 lb BMI (Body Mass Index) 28.3 kg/m2 Heart Rate 99 /min Body Temperature 97.3 F Respiratory Rate 18 /min 07/08/2016 11:06am BP Systolic 108 mmHg BP Diastolic 68 mmHg Height 61 inches 5'1" Weight 147.00 lb BMI (Body Mass Index) 27.8 kg/m2 Heart Rate 113 /min Respiratory Rate 18 /min 06/22/2016 2:00pm BP Systolic 106 mmHg BP Diastolic 68 mmHg Height 61 inches 5'1" Weight 147.00 lb BMI (Body Mass Index) 27.8 kg/m2 Heart Rate 73 /min Respiratory Rate 16 /min 05/20/2016 1:36pm BP Systolic 142 mmHg BP Diastolic 74 mmHg Height 61 inches 5'1" Weight 143.00 lb BMI (Body Mass Index) 27.0 kg/m2 Heart Rate 61 /min Respiratory Rate 18 /min 03/11/2016 3:30pm BP Systolic 118 mmHg BP Diastolic 64 mmHg Height 61 inches 5'1" Weight 140.00 lb BMI (Body Mass Index) 26.4 kg/m2 Heart Rate 82 /min Respiratory Rate 18 /min 02/06/2016 3:25pm BP Systolic 130 mmHg BP Diastolic 78 mmHg Height 61 inches 5'1" Weight 139.00 lb BMI (Body Mass Index) 26.3 kg/m2 Heart Rate 94 /min Respiratory Rate 22 /min 01/15/2016 11:33am BP Systolic 116 mmHg BP Diastolic 70 mmHg Height 61 inches 5'1" Weight 137.00 lb BMI (Body Mass Index) 25.9 kg/m2 Heart Rate 96 /min Respiratory Rate 20 /min 12/04/2015 2:45pm BP Systolic 130 mmHg BP Diastolic 68 mmHg Height 61 inches 5'1" Heart Rate 64 /min Respiratory Rate 15 /min 10/30/2015 10:32am BP Systolic 116 mmHg BP Diastolic 78 mmHg Height 61 inches 5'1" Weight 139.00 lb BMI (Body Mass Index) 26.3 kg/m2 Heart Rate 76 /min Respiratory Rate 17 /min 10/13/2015 9:11am BP Systolic 117 mmHg BP Diastolic 79 mmHg Height 61 inches 5'1" Weight 138.00 lb BMI (Body Mass Index) 26.1 kg/m2 Heart Rate 88 /min Respiratory Rate 18 /min 10/03/2015 10:31am BP Systolic 114 mmHg BP Diastolic 77 mmHg Height 61 inches 5'1" Weight 140.00 lb BMI (Body Mass Index) 26.4 kg/m2 Heart Rate 89 /min Respiratory Rate 18 /min 07/29/2015 2:08pm BP Systolic 111 mmHg BP Diastolic 76 mmHg Height 61 inches 5'1" Weight 138.00 lb BMI (Body Mass Index) 26.1 kg/m2 Heart Rate 99 /min Body Temperature 95.9 F Respiratory Rate 18 /min 06/26/2015 2:37pm BP Systolic 121 mmHg BP Diastolic 67 mmHg Height 61 inches 5'1" Weight 138.00 lb BMI (Body Mass Index) 26.1 kg/m2 Heart Rate 98 /min Body Temperature 96.6 F Respiratory Rate 18 /min 04/24/2015 2:08pm BP Systolic 106 mmHg BP Diastolic 69 mmHg Height 61 inches 5'1" Weight 141.00 lb BMI (Body Mass Index) 26.6 kg/m2 Heart Rate 108 /min Body Temperature 97.8 F Respiratory Rate 18 /min 04/03/2015 11:45am BP Systolic 98 mmHg BP Diastolic 72 mmHg Height 61 inches 5'1" Weight 148.00 lb BMI (Body Mass Index) 28.0 kg/m2 Heart Rate 101 /min Body Temperature 98.2 F Respiratory Rate 18 /min 03/03/2015 2:05pm BP Systolic 109 mmHg BP Diastolic 81 mmHg Height 61 inches 5'1" Weight 148.00 lb BMI (Body Mass Index) 28.0 kg/m2 Heart Rate 95 /min Respiratory Rate 16 /min 02/21/2015 3:31pm BP Systolic 120 mmHg BP Diastolic 75 mmHg Height 61 inches 5'1" Weight 148.00 lb BMI (Body Mass Index) 28.0 kg/m2 Heart Rate 88 /min Respiratory Rate 15 /min 02/10/2015 4:15pm BP Systolic 122 mmHg BP Diastolic 80 mmHg Height 61 inches 5'1" Weight 148.00 lb BMI (Body Mass Index) 28.0 kg/m2 Heart Rate 92 /min Respiratory Rate 16 /min 01/21/2015 11:16am BP Systolic 122 mmHg BP Diastolic 78 mmHg Height 61 inches 5'1" Weight 149.00 lb BMI (Body Mass Index) 28.2 kg/m2 Heart Rate 80 /min Respiratory Rate 18 /min 11/07/2014 4:23pm BP Systolic 126 mmHg BP Diastolic 80 mmHg Height 61 inches 5'1" Weight 153.00 lb BMI (Body Mass Index) 28.9 kg/m2 Heart Rate 101 /min Body Temperature 98.1 F Respiratory Rate 20 /min 10/08/2014 4:34pm BP Systolic 158 mmHg BP Diastolic 96 mmHg Height 61 inches 5'1" Weight 146.00 lb BMI (Body Mass Index) 27.6 kg/m2 Heart Rate 108 /min Respiratory Rate 20 /min 08/08/2014 2:06pm BP Systolic 123 mmHg BP Diastolic 83 mmHg Height 61 inches 5'1" Weight 143.00 lb BMI (Body Mass Index) 27.0 kg/m2 Heart Rate 104 /min Respiratory Rate 16 /min 07/23/2014 9:54am BP Systolic 139 mmHg BP Diastolic 91 mmHg Height 61 inches 5'1" Weight 140.00 lb BMI (Body Mass Index) 26.4 kg/m2 Heart Rate 101 /min Respiratory Rate 16 /min 07/09/2014 2:34pm BP Systolic 114 mmHg BP Diastolic 81 mmHg Height 61 inches 5'1" Weight 140.00 lb BMI (Body Mass Index) 26.4 kg/m2 Heart Rate 110 /min Body Temperature 102.8 F Respiratory Rate 16 /min 04/30/2014 2:25pm BP Systolic 110 mmHg BP Diastolic 68 mmHg Height 61 inches 5'1" Weight 142.00 lb BMI (Body Mass Index) 26.8 kg/m2 Heart Rate 108 /min Respiratory Rate 18 /min 01/22/2014 2:50pm BP Systolic 111 mmHg BP Diastolic 76 mmHg Height 61 inches 5'1" Weight 143.00 lb BMI (Body Mass Index) 27.0 kg/m2 Heart Rate 101 /min Body Temperature 97.7 F Respiratory Rate 20 /min 11/02/2013 2:18pm BP Systolic 110 mmHg BP Diastolic 72 mmHg Height 61 inches 5'1" Weight 149.00 lb BMI (Body Mass Index) 28.2 kg/m2 Heart Rate 91 /min Respiratory Rate 18 /min 09/06/2013 3:34pm BP Systolic 137 mmHg BP Diastolic 86 mmHg Height 61 inches 5'1" Weight 149.00 lb BMI (Body Mass Index) 28.2 kg/m2 Heart Rate 103 /min Respiratory Rate 18 /min 08/20/2013 1:34pm BP Systolic 124 mmHg BP Diastolic 60 mmHg Height 61 inches 5'1" Weight 151.00 lb BMI (Body Mass Index) 28.5 kg/m2 Heart Rate 74 /min Body Temperature 97.0 F Respiratory Rate 22 /min 08/01/2013 2:23pm BP Systolic 138 mmHg BP Diastolic 86 mmHg Height 61 inches 5'1" Weight 156.00 lb BMI (Body Mass Index) 29.5 kg/m2 Heart Rate 113 /min Respiratory Rate 20 /min 05/22/2013 2:07pm BP Systolic 124 mmHg BP Diastolic 76 mmHg Height 61 inches 5'1" Weight 154.00 lb BMI (Body Mass Index) 29.1 kg/m2 Heart Rate 110 /min Body Temperature 97.1 F Respiratory Rate 22 /min 05/03/2013 3:59pm BP Systolic 152 mmHg BP Diastolic 95 mmHg BP Systolic Recheck 100 mmHg BP Diastolic Recheck 70 mmHg Height 61 inches 5'1" Weight 153.00 lb BMI (Body Mass Index) 28.9 kg/m2 Heart Rate 116 /min 03/30/2013 2:34pm BP Systolic 118 mmHg BP Diastolic 80 mmHg Height 61 inches 5'1" Weight 152.00 lb BMI (Body Mass Index) 28.7 kg/m2 Heart Rate 100 /min Body Temperature 98.1 F Respiratory Rate 22 /min 02/28/2013 9:25am BP Systolic 106 mmHg BP Diastolic 64 mmHg Height 61 inches 5'1" Weight 145.00 lb BMI (Body Mass Index) 27.4 kg/m2 Heart Rate 103 /min Respiratory Rate 20 /min 02/21/2013 10:43am BP Systolic 104 mmHg BP Diastolic 62 mmHg Height 61 inches 5'1" Weight 143.00 lb BMI (Body Mass Index) 27.0 kg/m2 Heart Rate 81 /min Body Temperature 98.9 F Respiratory Rate 18 /min 02/12/2013 3:44pm BP Systolic 112 mmHg BP Diastolic 74 mmHg Height 61 inches 5'1" Weight 148.00 lb BMI (Body Mass Index) 28.0 kg/m2 Heart Rate 98 /min Body Temperature 99.9 F Respiratory Rate 22 /min 01/05/2013 10:36am BP Systolic 126 mmHg BP Diastolic 80 mmHg Height 61 inches 5'1" Weight 152.00 lb BMI (Body Mass Index) 28.7 kg/m2 Heart Rate 100 /min Body Temperature 97.6 F Respiratory Rate 20 /min 12/12/2012 3:17pm BP Systolic 142 mmHg BP Diastolic 80 mmHg Height 61 inches 5'1" Weight 151.00 lb BMI (Body Mass Index) 28.5 kg/m2 Heart Rate 116 /min Body Temperature 99.1 F Respiratory Rate 22 /min 11/23/2012 3:00pm BP Systolic 106 mmHg BP Diastolic 74 mmHg Height 61 inches 5'1" Weight 151.00 lb BMI (Body Mass Index) 28.5 kg/m2 Heart Rate 76 /min Body Temperature 98.1 F Respiratory Rate 20 /min 10/26/2012 3:21pm BP Systolic 92 mmHg BP Diastolic 68 mmHg Height 61 inches 5'1" Weight 143.00 lb BMI (Body Mass Index) 27.0 kg/m2 Heart Rate 93 /min Body Temperature 98.8 F Respiratory Rate 16 /min 09/26/2012 2:25pm BP Systolic 110 mmHg BP Diastolic 80 mmHg Height 61 inches 5'1" Weight 148.00 lb BMI (Body Mass Index) 28.0 kg/m2 Heart Rate 120 /min Respiratory Rate 22 /min 09/12/2012 2:09pm BP Systolic 130 mmHg BP Diastolic 60 mmHg Height 61 inches 5'1" Weight 147.00 lb BMI (Body Mass Index) 27.8 kg/m2 Heart Rate 116 /min Respiratory Rate 14 /min 08/29/2012 3:17pm BP Systolic 132 mmHg BP Diastolic 80 mmHg Height 61 inches 5'1" Weight 148.00 lb BMI (Body Mass Index) 28.0 kg/m2 Heart Rate 95 /min Respiratory Rate 24 /min 07/25/2012 2:21pm BP Systolic 112 mmHg BP Diastolic 70 mmHg Height 61 inches 5'1" Weight 139.00 lb BMI (Body Mass Index) 26.3 kg/m2 Heart Rate 99 /min Body Temperature 97.3 F Respiratory Rate 16 /min 07/13/2012 1:57pm BP Systolic 120 mmHg BP Diastolic 84 mmHg Height 61 inches 5'1" Weight 137.00 lb BMI (Body Mass Index) 25.9 kg/m2 Heart Rate 90 /min Body Temperature 96.7 F Respiratory Rate 18 /min 04/17/2012 1:14pm BP Systolic 100 mmHg BP Diastolic 70 mmHg Height 61 inches 5'1" Weight 138.00 lb BMI (Body Mass Index) 26.1 kg/m2 Heart Rate 88 /min Respiratory Rate 20 /min 04/03/2012 2:17pm BP Systolic 112 mmHg BP Diastolic 70 mmHg Height 61 inches 5'1" Weight 138.00 lb BMI (Body Mass Index) 26.1 kg/m2 Heart Rate 80 /min Respiratory Rate 20 /min 03/10/2012 1:27pm BP Systolic 130 mmHg BP Diastolic 76 mmHg Height 61 inches 5'1" Weight 132.00 lb BMI (Body Mass Index) 24.9 kg/m2 Heart Rate 80 /min Last Menstrual Period 0 Respiratory Rate 15 /min 02/18/2012 4:05pm BP Systolic 140 mmHg BP Diastolic 65 mmHg Height 61 inches 5'1" Weight 131.00 lb BMI (Body Mass Index) 24.7 kg/m2 Heart Rate 67 /min Respiratory Rate 15 /min 01/04/2012 10:39am BP Systolic 109 mmHg BP Diastolic 78 mmHg Height 61 inches 5'1" Weight 131.00 lb BMI (Body Mass Index) 24.7 kg/m2 Heart Rate 61 /min Last Menstrual Period 0 Respiratory Rate 17 /min 11/25/2011 11:17am BP Systolic 103 mmHg BP Diastolic 70 mmHg Height 61 inches 5'1" Weight 131.00 lb BMI (Body Mass Index) 24.7 kg/m2 Heart Rate 60 /min Last Menstrual Period 0 Respiratory Rate 14 /min 10/22/2011 10:21am BP Systolic 110 mmHg BP Diastolic 80 mmHg Height 61 inches 5'1" Weight 133.00 lb BMI (Body Mass Index) 25.1 kg/m2 Heart Rate 75 /min Last Menstrual Period 0 Respiratory Rate 14 /min 10/14/2011 2:39pm BP Systolic 108 mmHg BP Diastolic 75 mmHg Height 61 inches 5'1" Weight 133.00 lb BMI (Body Mass Index) 25.1 kg/m2 Heart Rate 76 /min Last Menstrual Period 0 Respiratory Rate 14 /min 09/03/2011 12:02pm BP Systolic 107 mmHg BP Diastolic 75 mmHg Height 61 inches 5'1" Weight 134.00 lb BMI (Body Mass Index) 25.3 kg/m2 Heart Rate 89 /min Results Test Date Facility Test Result H/L Range Note C. Difficile 06/03/2018 [facility] C. Difficile POSITIVE for Abnormal 1, 2 Toxin B By PCR Toxin B By PCR C.D <SEE NOTE> Recommended Therapy: ORAL VANCOMYCIN <SEE NOTE> 3 Note: DISCONTINUING BR <SEE NOTE> 4 Method: BD MAX PCR Urinalysis With Microscopic 06/03/2018 [facility] Urine Color YELLOW Yellow Urine Clarity SL CLOUDY Clear Urine Glucose - Dipstick NEGATIVE mg/dL Negative Urine Bilirubin - Dipstick NEGATIVE Negative Urine Ketone NEGATIVE mg/dL Negative Urine Specific [place] 1.020 N 1.010-1.030 Urine Blood TRACE Negative Urine PH 6.0 Low 6.5-7.5 Urine Protein - Dipstick 30 mg/dL High Negative Urine Urobilinogen - Dipstick 0.2 E.U./dL N 0.2-1.0 Urine Nitrite - Dipstick NEGATIVE Negative Urine Leuk Esterase MODERATE Abnormal Negative Urine RBC 5-10 rbc/hpf High 0-2 Urine WBC > 50 wbc/hpf High 0-7 5 Urine Epithelial Cells FEW /lpf None Seen Urine Bacteria FEW None Seen Urine Hyaline Cast >10 #/lpf None Seen Source: URINE, CLEAN CAT <SEE NOTE> 6 Laboratory test 06/03/2018 [facility] Urine Culture NO GROWTH: FINAL 7 finding <SEE NOTE> Lactic Acid 06/03/2018 [facility] Lactic Acid 2.1 mmol/L High 0.4-1.9 Lab Reflex >2.0 for Sepsis? Y CBC Auto Diff 01/12/2018 [facility] White Blood Count 6.4 10^3/uL N 3.5-10.8 Red Blood Count 4.79 10^6/uL N 4.00-5.40 Hemoglobin 14.7 g/dL N 12.0-16.0 Hematocrit 44 % N 35-47 Mean Corpuscular Volume 92 fL N 80-97 Mean Corpuscular Hemoglobin 31 pg N 27-31 Mean Corpuscular HGB Conc 34 g/dL N 31-36 Red Cell Distribution Width 13 % N 10.5-15 Platelet Count 187 10^3/uL N 150-450 Mean Platelet Volume 8.4 um3 N 7.4-10.4 Abs Neutrophils 4.1 10^3/uL N 1.5-7.7 Abs Lymphocytes 1.4 10^3/uL N 1.0-4.8 Abs Monocytes 0.7 10^3/uL N 0-0.8 Abs Eosinophils 0.1 10^3/uL N 0-0.6 Abs Basophils 0 10^3/uL N 0-0.2 Abs Nucleated RBC 0 10^3/uL Granulocyte % 64.4 % N 38-83 Lymphocyte % 21.5 % Low 25-47 Monocyte % 11.8 % High 0-7 Eosinophil % 2.0 % N 0-6 Basophil % 0.3 % N 0-2 Nucleated Red Blood Cells % 0 Comp Metabolic Panel 01/12/2018 [facility] Sodium 140 mmol/L N 135- 145 Potassium 3.7 mmol/L N 3.5-5.0 Chloride 102 mmol/L N 101-111 Co2 Carbon Dioxide 27 mmol/L N 22-32 Anion Gap 11 mmol/L N 2-11 Glucose 82 mg/dL N 70-100 Blood Urea Nitrogen 13 mg/dL N 6-24 Creatinine 1.02 mg/dL High 0.51-0.95 BUN/Creatinine Ratio 12.7 N 8-20 Calcium 9.2 mg/dL N 8.6-10.3 Total Protein 6.8 g/dL N 6.4-8.9 Albumin 4.5 g/dL N 3.2-5.2 Globulin 2.3 g/dL N 2-4 Albumin/Globulin Ratio 2.0 N 1-3 Total Bilirubin 0.70 mg/dL N 0.2-1.0 Alkaline Phosphatase 104 U/L N 34-104 Alt 20 U/L N 7-52 Ast 22 U/L N 13-39 Egfr Non- 53.0 >60 Egfr 64.1 >60 8 Lipid Profile (Trig/Chol/HDL) 01/12/2018 [facility] Triglycerides 230 mg/dL 9 Cholesterol 256 mg/dL 10 HDL Cholesterol 45.5 mg/dL 11 LDL Cholesterol 165 mg/dL 12 Laboratory test 01/12/2018 [facility] TSH (Thyroid 2.87 mcIU/mL N 0.34-5.60 13 finding Stim Horm) Hemoglobin A1c (Glyco HGB) 5.3 % N 4.0-5.6 14 Magnesium 1.9 mg/dL N 1.9-2.7 15 Vitamin D Total 25(Oh) 21.3 ng/mL N 20-50 16 CBC Auto Diff 04/22/2017 [facility] White Blood Count 6.2 10^3/uL N 3.5-10.8 17 Red Blood Count 4.52 10^6/uL N 4.0-5.4 Hemoglobin 13.8 g/dL N 12.0-16.0 Hematocrit 41 % N 35-47 Mean Corpuscular Volume 90 fL N 80-97 Mean Corpuscular Hemoglobin 31 pg N 27-31 Mean Corpuscular HGB Conc 34 g/dL N 31-36 Red Cell Distribution Width 14 % N 10.5-15 Platelet Count 217 10^3/uL N 150-450 Mean Platelet Volume 8 um3 N 7.4-10.4 Abs Neutrophils 4.2 10^3/uL N 1.5-7.7 Abs Lymphocytes 1.2 10^3/uL N 1.0-4.8 Abs Monocytes 0.6 10^3/uL N 0-0.8 Abs Eosinophils 0.2 10^3/uL N 0-0.6 Abs Basophils 0 10^3/uL N 0-0.2 Abs Nucleated RBC 0 10^3/uL N Granulocyte % 68.0 % N 38-83 Lymphocyte % 18.8 % Low 25-47 Monocyte % 9.9 % High 1-9 Eosinophil % 2.6 % N 0-6 Basophil % 0.7 % N 0-2 Nucleated Red Blood Cells % 0 N Comp Metabolic Panel 04/22/2017 [facility] Sodium 138 mmol/L N 133- 145 Potassium 4.0 mmol/L N 3.5-5.0 Chloride 100 mmol/L Low 101-111 Co2 Carbon Dioxide 31 mmol/L N 22-32 Anion Gap 7 mmol/L N 2-11 Glucose 104 mg/dL High 70-100 Blood Urea Nitrogen 13 mg/dL N 6-24 Creatinine 0.97 mg/dL High 0.51-0.95 BUN/Creatinine Ratio 13.4 N 8-20 Calcium 9.3 mg/dL N 8.6-10.3 Total Protein 6.2 g/dL Low 6.4-8.9 Albumin 3.9 g/dL N 3.2-5.2 Globulin 2.3 g/dL N 2-4 Albumin/Globulin Ratio 1.7 N 1-3 Total Bilirubin 0.90 mg/dL N 0.2-1.0 Alkaline Phosphatase 76 U/L N 34-104 Alt 14 U/L N 7-52 Ast 18 U/L N 13-39 Egfr Non- 56.3 N >60 Egfr 72.4 N >60 18 Lipid Profile 04/22/2017 [facility] Triglycerides 228 mg/dL N 19 (Trig/Chol/HDL) Cholesterol 230 mg/dL N 20 HDL Cholesterol 43.3 mg/dL N 21 LDL Cholesterol 141 mg/dL N 22 Laboratory test finding 04/22/2017 [facility] Magnesium 1.9 mg/dL N 1.9-2.7 23 CRP High Sensitivity 6.42 mg/L N 24 TSH (Thyroid Stim Horm) 3.08 mcIU/mL N 0.34-5.60 25 Vitamin B12 182 pg/mL N 180-914 26 Hemoglobin A1c (Glyco HGB) 5.5 % N 4.0-5.6 27 Comp Metabolic Panel 04/14/2017 [facility] Sodium 139 mmol/L N 133- 145 Potassium 4.2 mmol/L N 3.5-5.0 Chloride 101 mmol/L N 101-111 Co2 Carbon Dioxide 31 mmol/L N 22-32 Anion Gap 7 mmol/L N 2-11 Glucose 80 mg/dL N 70-100 Blood Urea Nitrogen 14 mg/dL N 6-24 Creatinine 0.91 mg/dL N 0.51-0.95 BUN/Creatinine Ratio 15.4 N 8-20 Calcium 9.3 mg/dL N 8.6-10.3 Total Protein 6.7 g/dL N 6.4-8.9 Albumin 4.3 g/dL N 3.2-5.2 Globulin 2.4 g/dL N 2-4 Albumin/Globulin Ratio 1.8 N 1-3 Total Bilirubin 0.60 mg/dL N 0.2-1.0 Alkaline Phosphatase 81 U/L N 34-104 Alt 16 U/L N 7-52 Ast 21 U/L N 13-39 Egfr Non- 60.6 N >60 Egfr 77.9 N >60 28 Lipid Profile 04/14/2017 [facility] Triglycerides 294 mg/dL N 29 (Trig/Chol/HDL) Cholesterol 250 mg/dL N 30 HDL Cholesterol 44.5 mg/dL N 31 LDL Cholesterol 147 mg/dL N 32 Laboratory test 04/14/2017 [facility] CRP High Sensitivity 9.61 mg/L N 33 finding TSH (Thyroid Stim Horm) 2.34 mcIU/mL N 0.34-5.60 34 Magnesium 2.1 mg/dL N 1.9-2.7 35 Hemoglobin A1c (Glyco HGB) 5.8 % High 4.0-5.6 36 Vitamin B12 227 pg/mL N 180-914 37 CBC 07/01/2016 [facility] White Blood Count 8.6 K/uL N 3.1-10.7 38 Red Blood Count 4.27 M/uL N 3.90-5.40 Hemoglobin 13.4 gm/dL N 11.6-15.8 Hematocrit 40.4 % N 36.0-46.1 Mean Cell Volume 94.6 fl N 80.9-99.0 Mean Corpuscular HGB 31.4 pg N 25.9-32.7 Mean Corpuscular HGB Conc 33.2 g/dL N 30.8-34.3 Platelet Count 216 K/uL N 155-360 Red Cell Distri Width %CV 13.7 % N 11.7-14.4 Mean Platelet Volume 8.8 fL Low 8.9-12.4 Glycohemoglobin A1c 07/01/2016 [facility] Glycohemoglobin (A1c) 5.4 % N 4.2 -6.3 39 eAG 108 mg/dL N Laboratory test finding 07/01/2016 [facility] Serum Iron 95 g/dL N 50- 170 Vitamin B12 And Folate 07/01/2016 [facility] Vitamin B12 167 pg/mL Low 193- 986 Folic Acid 15.5 ng/mL N 3.1-17.5 Comprehensive Metabolic Panel 07/01/2016 [facility] Glucose 76 mg/dL N 74- 106 BUN 20 mg/dL High 7-18 Creatinine 1.0 mg/dL N 0.6-1.3 Glom Filtration Rate, Estimate 58 mL/min N >60 If >60 mL/min N >60 40 BUN/Creat 20.0 ratio N Sodium 141 mmol/L N 136-145 Potassium 3.8 mmol/L N 3.5-5.1 Chloride 104 mmol/L N 98-107 Carbon Dioxide 34 mmol/L High 21-32 Anion Gap 3 mEq/L Low 8-16 Calcium 8.5 mg/dL N 8.5-10.1 Total Protein 7.0 g/dL N 6.4-8.2 Albumin 3.5 g/dL N 3.4-5.0 Globulin 3.5 g/dL N 1.9-4.3 Alb/Glob 1.0 ratio N Bilirubin,Total 0.5 mg/dL N 0.2-1.0 Sgot/Ast 13 U/L Low 15-37 41 SGPT/Alt 24 U/L N 12-78 Alkaline Phosphatase 112 U/L N 45-117 LDL Cholesterol Profile 07/01/2016 [facility] Cholesterol 243 mg/dL High < 200 42 Triglycerides 176 mg/dL High <150 43 HDL Cholesterol 75 mg/dL N >40 44 LDL-Cholesterol 133 mg/dL N < 100 45 Laboratory test finding 07/01/2016 [facility] Amylase 66 U/L N 25-115 Lipase 114 U/L N 73-393 CK 70 U/L N 26-192 Thyroid Stim Hormone 5.13 uIU/mL High 0.30-4.20 FSH 97.4 mIU/mL N 46 Luteinizing Hormone 34.8 mIU/mL N 47 Prolactin 16.9 ng/mL N 48 Free T3 2.78 pg/mL N 2.18-3.98 Free T4 1.03 ng/dL N 0.76-1.46 Laboratory test 07/01/2016 [facility] Estradiol,Serum < 10.7 N 49 finding pg/mL Laboratory test 07/01/2016 [facility] Vitamin D,1,25 53.1 pg/mL N 19.9- 50 finding Dihydroxy 79.3 Laboratory test 10/13/2015 [facility] Magnesium 1.8 mg/dL Low 1.9-2 51 finding .7 Hemoglobin A1c (Glyco HGB) 5.4 % N Less than 6.0 52 Vitamin D Total 25(Oh) 25.8 ng/mL Low 30-50 53 Vitamin B12 127 pg/mL Low 180-914 54 Folic Acid (Folate) 18.17 ng/mL N >3.99 55 Lipid Profile 10/13/2015 [facility] Triglycerides 169 mg/dL N 56 (Trig/Chol/HDL) Cholesterol 184 mg/dL N 57 HDL Cholesterol 43.3 mg/dL N 58 LDL Cholesterol 107 mg/dL N 59 Laboratory test 10/13/2015 [facility] TSH (Thyroid 3.01 ?IU/mL N 0.34 -5.60 60 finding Stim Horm) Comp Metabolic 10/13/2015 [facility] Sodium 138 mmol/L N 133-145 Panel Potassium 3.2 mmol/L Low 3.5-5.0 Chloride 101 mmol/L N 101-111 Co2 Carbon Dioxide 29 mmol/L N 22-32 Anion Gap 8 mmol/L N 2-11 Glucose 89 mg/dL N 70-100 Blood Urea Nitrogen 11 mg/dL N 6-24 Creatinine 1.00 mg/dL High 0.51-0.95 BUN/Creatinine Ratio 11.0 N 8-20 Calcium 9.1 mg/dL N 8.6-10.3 Total Protein 6.2 g/dL Low 6.4-8.9 Albumin 4.1 g/dL N 3.2-5.2 Globulin 2.1 g/dL N 2-4 Albumin/Globulin Ratio 2.0 N 1-3 Total Bilirubin 0.70 mg/dL N 0.2-1.0 Alkaline Phosphatase 85 U/L N 34-104 Alt 14 U/L N 7-52 Ast 18 U/L N 13-39 Egfr Non- 54.5 N >60 Egfr 70.1 N >60 61 CBC Auto Diff 10/13/2015 [facility] White Blood Count 4.0 10^3/uL N 3.5-10.8 Red Blood Count 4.45 10^6/uL N 4.0-5.4 Hemoglobin 13.1 g/dL N 12.0-16.0 Hematocrit 39 % N 35-47 Mean Corpuscular Volume 88 fL N 80-97 Mean Corpuscular Hemoglobin 30 pg N 27-31 Mean Corpuscular HGB Conc 34 g/dL N 31-36 Red Cell Distribution Width 17 % High 10.5-15 Platelet Count 216 10^3/uL N 150-450 Mean Platelet Volume 8 um3 N 7.4-10.4 Abs Neutrophils 2.5 10^3/uL N 1.5-7.7 Abs Lymphocytes 0.8 10^3/uL Low 1.0-4.8 Abs Monocytes 0.6 10^3/uL N 0-0.8 Abs Eosinophils 0.1 10^3/uL N 0-0.6 Abs Basophils 0 10^3/uL N 0-0.2 Abs Nucleated RBC 0.01 10^3/uL N Granulocyte % 62.0 % N 38-83 Lymphocyte % 20.7 % Low 25-47 Monocyte % 14.5 % High 1-9 Eosinophil % 2.6 % N 0-6 Basophil % 0.2 % N 0-2 Nucleated Red Blood Cells % 0.2 N CBC Auto Diff 04/24/2015 [facility] White Blood Count 5.0 K/uL 3.1-10.7 Red Blood Count 4.33 M/uL 3.90-5.40 Hemoglobin 13.0 gm/dL 11.6-15.8 Hematocrit 39.5 % 36.0-46.1 Mean Cell Volume 91.2 fl 80.9-99.0 Mean Corpuscular HGB 30.0 pg 25.9-32.7 Mean Corpuscular HGB Conc 32.9 g/dL 30.8-34.3 Platelet Count 285 K/uL 155-360 Red Cell Distri Width SD 44.5 fl 3-47 Red Cell Distri Width %CV 13.7 % 11.7-14.4 Mean Platelet Volume 10.0 fL 8.9-12.4 Neut% 74.4 % High 40.4-72.8 Lymph % 14.8 % Low 17.0-46.1 [place] % 8.8 % 4.3-13.2 Eo% 2.0 % 0.0-6.6 Bas% 0.0 % 0.0-1.1 Neut# 3.72 K/uL 1.0-7.0 Lymph # 0.74 K/uL Low 1.8-7.0 [place] # 0.44 K/uL 0.3-0.9 Eos # 0.10 K/uL 0.0-0.5 Baso # 0.00 K/uL 0.0-0.1 Comp Metabolic Panel 04/24/2015 [facility] Glucose 113 mg/dL High 74-106 BUN 9 mg/dL 7-18 Creatinine 0.9 mg/dL 0.6-1.3 Glom Filtration Rate, Estimate >60 mL/min >60 If >60 mL/min >60 62 BUN/Creat 10.0 ratio Sodium 141 mmol/L 136-145 Potassium 3.2 mmol/L Low 3.5-5.1 Chloride 102 mmol/L 98-107 Carbon Dioxide 30 mmol/L 21-32 Anion Gap 9 mEq/L 8-16 Calcium 9.2 mg/dL 8.5-10.1 Total Protein 6.7 g/dL 6.4-8.2 Albumin 3.6 g/dL 3.4-5.0 Globulin 3.1 g/dL 1.9-4.3 Alb/Glob 1.2 ratio Bilirubin,Total 0.4 mg/dL 0.2-1.0 Sgot/Ast 19 U/L 15-37 SGPT/Alt 23 U/L 12-78 Alkaline Phosphatase 115 U/L 45-117 Laboratory test 07/23/2014 [facility] Thyroid Stim 2.22 uIU/mL 0.36-3.74 finding Hormone Free T4 1.10 ng/dL 0.76-1.46 Uric Acid 3.9 mg/dL 2.6-6.0 Vitamin B12 And Folate 07/23/2014 [facility] Vitamin B12 393 pg/mL 193- 986 63 Folic Acid 13.9 ng/mL 3.1-17.5 Laboratory test finding 07/23/2014 [facility] Sedimentation Rate 37 mm/hr High 0-30 C-Reactive Protein,Cardiac 6.94 mg/L <3.0 Magnesium 1.8 mg/dL 1.8-2.4 Glycohemoglobin A1c 07/23/2014 [facility] Glycohemoglobin (A1c) 5.5 % 4.2- 6.3 64 eAG 111 mg/dL Laboratory test 07/23/2014 [facility] Vitamin D,1,25 69.7 pg/mL 10.0-75.0 65 finding Dihydroxy LDL Cholesterol 07/23/2014 [facility] Cholesterol 219 mg/dL < 200 66 Profile Triglycerides 275 mg/dL < 150 67 HDL Cholesterol 45 mg/dL > 40 68 LDL-Cholesterol 119 mg/dL < 100 69 Comprehensive Metabolic Panel 07/23/2014 [facility] Glucose 68 mg/dL Low 74 -106 BUN 7 mg/dL 7-18 Creatinine 1.0 mg/dL 0.6-1.3 Glom Filtration Rate, Estimate 58 mL/min >60 If >60 mL/min >60 70 BUN/Creat 7.0 ratio Sodium 141 mmol/L 136-145 Potassium 4.2 mmol/L 3.5-5.1 Chloride 103 mmol/L 98-107 Carbon Dioxide 30 mmol/L 21-32 Anion Gap 12 mEq/L 8-16 Calcium 8.3 mg/dL Low 8.5-10.1 Total Protein 7.0 g/dL 6.4-8.2 Albumin 3.6 g/dL 3.4-5.0 Globulin 3.4 g/dL 1.9-4.3 Alb/Glob 1.1 ratio Bilirubin,Total 0.6 mg/dL 0.2-1.0 Sgot/Ast 21 U/L 15-37 SGPT/Alt 24 U/L 12-78 Alkaline Phosphatase 105 U/L 45-117 CBC W/Automated Diff 07/23/2014 [facility] White Blood Count 5.9 K/uL 3.1- 10.7 Red Blood Count 4.72 M/uL 3.90-5.40 Hemoglobin 14.0 gm/dL 11.6-15.8 Hematocrit 43.8 % 36.0-46.1 Mean Cell Volume 92.8 fl 80.9-99.0 Mean Corpuscular HGB 29.7 pg 25.9-32.7 Mean Corpuscular HGB Conc 32.0 g/dL 30.8-34.3 Platelet Count 259 K/uL 155-360 Red Cell Distri Width SD 44.6 fl 3-47 Red Cell Distri Width %CV 13.4 % 11.7-14.4 Mean Platelet Volume 9.8 fL 8.9-12.4 Neut% 68.7 % 40.4-72.8 Lymph % 16.5 % Low 17.0-46.1 [place] % 13.4 % High 4.3-13.2 Eo% 1.2 % 0.0-6.6 Bas% 0.2 % 0.0-1.1 Neut# 4.05 K/uL 1.0-7.0 Lymph # 0.97 K/uL 0.8-3.4 [place] # 0.79 K/uL 0.3-0.9 Eos # 0.07 K/uL 0.0-0.5 Baso # 0.01 K/uL 0.0-0.1 Laboratory test finding 11/16/2013 [facility] CK 234 U/L High 26-190 71 Troponin-I < 0.02 ng/mL 0.00-0.50 72 CBS W/Automated Diff 11/16/2013 [facility] White Blood Count 6.3 K/uL 3.1- 10.7 Red Blood Count 4.07 M/uL 3.90-5.40 Hemoglobin 12.8 gm/dL 11.6-15.8 Hematocrit 37.2 % 36.0-46.1 Mean Cell Volume 91.4 fl 80.9-99.0 Mean Corpuscular HGB 31.4 pg 25.9-32.7 Mean Corpuscular HGB Conc 34.4 g/dL High 30.8-34.3 Platelet Count 161 K/uL 155-360 Red Cell Distri Width SD 44.8 fl 3-47 Red Cell Distri Width %CV 13.8 % 11.7-14.4 Mean Platelet Volume 9.7 fL 8.9-12.4 Neut# 5.66 K/uL 1.0-7.0 Lymph # 0.25 K/uL Low 0.8-3.4 [place] # 0.36 K/uL 0.3-0.9 Eos # 0.04 K/uL 0.0-0.5 Baso # 0.00 K/uL 0.0-0.1 Differential WBC Confirm 11/16/2013 [facility] Total Cells Counted 100 # CELLS Metamyelocyte% 1 % High -0 Band% 1 % 0-8 Neutrophils% 90 % High 33-73 Lymph% 5 % Low 17-56 Monocyte% 2 % 0-10 Eosinophil% 1 % 0-5 Platelet Estimate NORMAL RBC Morphology NORMAL Laboratory test finding 11/16/2013 [facility] CK-MB (Mass) 2.8 ng/ml 0.5- 8.2 73 Relative % Index 1.2 % <5 74 Basic Metabolic Panel 11/16/2013 [facility] Glucose 128 mg/dL High 76-115 BUN 13 mg/dL 5-23 Creatinine 1.0 mg/dL 0.5-1.4 Glom Filtration Rate, Estimate 58 mL/min >60 If >60 mL/min >60 75 BUN/Creat 13.0 ratio Sodium 138 mmol/L 136-145 Potassium 3.7 mmol/L 3.5-5.1 Chloride 106 mmol/L 98-107 Carbon Dioxide 27 mEq/L 18-29 Anion Gap 9 mEq/L 8-16 Calcium 9.3 mg/dL 8.5-10.1 Glycohemoglobin A1c 08/28/2013 [facility] Glycohemoglobin (A1c) 5.5 % 4.8- 6.0 76 eAG 111 mg/dL Laboratory test 08/28/2013 [facility] Thyroid Stim 1.61 uIU/mL 0.49-4.67 finding Hormone Laboratory test 08/28/2013 [facility] Vitamin 24.8 ng/mL Low 30.0-100.0 77 finding D,25-Hydroxy Liver Function 08/28/2013 [facility] Total Protein 7.4 g/dL 6.3-8.0 Tests Albumin 3.5 g/dL 3.5-5.0 Globulin 3.9 g/dL 1.9-4.3 Alb/Glob 0.9 ratio Bilirubin,Total 0.4 mg/dL 0.2-1.2 Bilirubin,Direct < 0.1 mg/dL Low 0.1-0.4 Bilirubin,Indirect 0.3 mg/dL 0.0-0.9 Sgot/Ast 15 U/L Low 16-40 SGPT/Alt 22 U/L Low 30-65 Alkaline Phosphatase 122 U/L 50-136 LDL Cholesterol Profile 08/28/2013 [facility] Cholesterol 217 mg/dL High 120-200 Triglycerides 240 mg/dL High 16-231 HDL Cholesterol 45 mg/dL 29-83 LDL-Cholesterol 124 mg/dL 62-185 Laboratory test 08/28/2013 [facility] C-Reactive 12.70 mg/L High 0.00-3.00 78 finding Protein,Cardiac Sedimentation Rate 37 mm/hr High 0-30 CBC W/Automated Diff 08/28/2013 [facility] White Blood Count 4.6 K/uL 3.1- 10.7 Red Blood Count 4.61 M/uL 3.90-5.40 Hemoglobin 13.8 gm/dL 11.6-15.8 Hematocrit 42.6 % 36.0-46.1 Mean Cell Volume 92.4 fl 80.9-99.0 Mean Corpuscular HGB 29.9 pg 25.9-32.7 Mean Corpuscular HGB Conc 32.4 g/dL 30.8-34.3 Platelet Count 219 K/uL 155-360 Red Cell Distri Width SD 44.1 fl 3-47 Red Cell Distri Width %CV 13.4 % 11.7-14.4 Mean Platelet Volume 10.1 fL 8.9-12.4 Neut% 56.4 % 40.4-72.8 Lymph % 28.9 % 17.0-46.1 [place] % 12.5 % 4.3-13.2 Eo% 2.2 % 0.0-6.6 Bas% 0.0 % 0.0-1.1 Neut# 2.58 K/uL 1.0-7.0 Lymph # 1.32 K/uL 0.8-3.4 [place] # 0.57 K/uL 0.3-0.9 Eos # 0.10 K/uL 0.0-0.5 Baso # 0.00 K/uL 0.0-0.1 Basic Metabolic Panel 08/28/2013 [facility] Glucose 90 mg/dL 76-115 BUN 10 mg/dL 5-23 Creatinine 0.9 mg/dL 0.5-1.4 Glom Filtration Rate, Estimate >60 mL/min >60 If >60 mL/min >60 79 BUN/Creat 11.1 ratio Sodium 140 mmol/L 136-145 Potassium 3.4 mmol/L Low 3.5-5.1 Chloride 103 mmol/L 98-107 Carbon Dioxide 32 mEq/L High 18-29 Anion Gap 8 mEq/L 8-16 Calcium 9.2 mg/dL 8.5-10.1 Urine Culture 03/30/2013 [facility] Urine Culture See Note 80 Laboratory test finding 02/28/2013 [facility] Magnesium 1.6 mg/dL Low 1.7- 2.3 Basic Metabolic Panel 02/28/2013 [facility] Glucose 71 mg/dL Low 76-115 BUN 12 mg/dL 5-23 Creatinine 1.0 mg/dL 0.5-1.4 Glom Filtration Rate, Estimate 58 mL/min >60 If >60 mL/min >60 81 BUN/Creat 12.0 ratio Sodium 140 mmol/L 136-145 Potassium 3.3 mmol/L Low 3.5-5.1 82 Chloride 98 mmol/L 98-107 Carbon Dioxide 32 mEq/L High 18-29 Anion Gap 13 mEq/L 8-16 Calcium 9.2 mg/dL 8.5-10.1 Liver Function Tests 02/28/2013 [facility] Total Protein 6.4 g/dL 6.3-8.0 Albumin 3.9 g/dL 3.5-5.0 Globulin 2.5 g/dL 1.9-4.3 Alb/Glob 1.6 ratio Bilirubin,Total 0.7 mg/dL 0.2-1.2 Bilirubin,Direct 0.1 mg/dL 0.1-0.4 Bilirubin,Indirect 0.6 mg/dL 0.0-0.9 Sgot/Ast 19 U/L 16-40 SGPT/Alt 34 U/L 30-65 Alkaline Phosphatase 88 U/L 50-136 LDL Cholesterol Profile 02/28/2013 [facility] Cholesterol 245 mg/dL High 120-200 Triglycerides 300 mg/dL High 16-231 HDL Cholesterol 73 mg/dL 29-83 LDL-Cholesterol 112 mg/dL 62-185 CBC W/Automated Diff 02/28/2013 [facility] White Blood Count 8.7 K/uL 3.1- 10.7 Red Blood Count 4.64 M/uL 3.90-5.40 Hemoglobin 14.5 gm/dL 11.6-15.8 Hematocrit 44.8 % 36.0-46.1 Mean Cell Volume 96.6 fl 80.9-99.0 Mean Corpuscular HGB 31.3 pg 25.9-32.7 Mean Corpuscular HGB Conc 32.4 g/dL 30.8-34.3 Platelet Count 217 K/uL 155-360 Red Cell Distri Width SD 45.4 fl 3-47 Red Cell Distri Width %CV 13.1 % 11.7-14.4 Mean Platelet Volume 10.0 fL 8.9-12.4 Differential WBC Confirm 02/28/2013 [facility] Total Cells Counted 100 # CELLS Band% 1 % 0-8 Neutrophils% 72 % 33-73 Lymph% 18 % 17-56 Monocyte% 9 % 0-10 Platelet Estimate NORMAL Anisocytosis 0-1+ Macrocytosis 0-1+ Toxic Granulation 0-1+ Basic Metabolic Panel 02/21/2013 [facility] Glucose 78 mg/dL 76-115 BUN 11 mg/dL 5-23 Creatinine 0.9 mg/dL 0.5-1.4 Glom Filtration Rate, Estimate >60 mL/min >60 If >60 mL/min >60 83 BUN/Creat 12.2 ratio Sodium 144 mmol/L 136-145 Potassium 2.8 mmol/L Low 3.5-5.1 Chloride 101 mmol/L 98-107 Carbon Dioxide 30 mEq/L High 18-29 Anion Gap 16 mEq/L 8-16 Calcium 8.8 mg/dL 8.5-10.1 LDL Cholesterol Profile 12/12/2012 [facility] Cholesterol 285 mg/dL High 120-200 Triglycerides 222 mg/dL 16-231 HDL Cholesterol 84 mg/dL High 29-83 LDL-Cholesterol 157 mg/dL 62-185 CBC W/Automated Diff 12/12/2012 [facility] White Blood Count 8.7 K/uL 3.1- 10.7 Red Blood Count 4.69 M/uL 3.90-5.40 Hemoglobin 15.1 gm/dL 11.6-15.8 Hematocrit 45.2 % 36.0-46.1 Mean Cell Volume 96.4 fl 80.9-99.0 Mean Corpuscular HGB 32.2 pg 25.9-32.7 Mean Corpuscular HGB Conc 33.4 g/dL 30.8-34.3 Platelet Count 195 K/uL 155-360 Red Cell Distri Width SD 44.5 fl 3-47 Red Cell Distri Width %CV 12.9 % 11.7-14.4 Mean Platelet Volume 9.8 fL 8.9-12.4 Neut% 64.3 % 40.4-72.8 Lymph % 22.7 % 17.0-46.1 [place] % 11.9 % 4.3-13.2 Eo% 1.0 % 0.0-6.6 Bas% 0.1 % 0.0-1.1 Neut# 5.60 K/uL 1.0-7.0 Lymph # 1.98 K/uL 0.8-3.4 [place] # 1.04 K/uL High 0.3-0.9 Eos # 0.09 K/uL 0.0-0.5 Baso # 0.01 K/uL 0.0-0.1 Basic Metabolic Panel 12/12/2012 [facility] Glucose 80 mg/dL 76-115 BUN 18 mg/dL 5-23 Creatinine 1.1 mg/dL 0.5-1.4 Glom Filtration Rate, Estimate 52 mL/min >60 If >60 mL/min >60 84 BUN/Creat 16.3 ratio Sodium 141 mmol/L 136-145 Potassium 3.6 mmol/L 3.5-5.1 Chloride 101 mmol/L 98-107 Carbon Dioxide 33 mEq/L High 18-29 Anion Gap 11 mEq/L 8-16 Calcium 9.3 mg/dL 8.5-10.1 Liver Function Tests 12/12/2012 [facility] Total Protein 7.4 g/dL 6.3-8.0 Albumin 3.8 g/dL 3.5-5.0 Globulin 3.6 g/dL 1.9-4.3 Alb/Glob 1.1 ratio Bilirubin,Total 0.5 mg/dL 0.2-1.2 Bilirubin,Direct < 0.1 mg/dL Low 0.1-0.4 Bilirubin,Indirect 0.4 mg/dL 0.0-0.9 Sgot/Ast 16 U/L 16-40 SGPT/Alt 32 U/L 30-65 Alkaline Phosphatase 84 U/L 50-136 Laboratory test 12/12/2012 [facility] C-Reactive 6.14 mg/L High 0.00-3.00 85 finding Protein,Cardiac Sedimentation Rate 15 mm/hr 0-30 Thyroid Stim Hormone 2.27 uIU/mL 0.49-4.67 Laboratory test finding 10/22/2011 [facility] Sedimentation Rate 13 mm/hr 0-30 CBS W/Automated Diff 10/22/2011 [facility] White Blood Count 6.2 K/uL 3.1- 10.7 Red Blood Count 4.73 M/uL 3.90-5.40 Hemoglobin 14.5 gm/dL 11.6-15.8 Hematocrit 43.8 % 36.0-46.1 Mean Cell Volume 92.6 fl 80.9-99.0 Mean Corpuscular HGB 30.7 pg 25.9-32.7 Mean Corpuscular HGB Conc 33.1 g/dL 30.8-34.3 Platelet Count 207 K/uL 155-360 Red Cell Distri Width SD 46.2 fl 3-47 Red Cell Distri Width %CV 14.0 % 11.7-14.4 Mean Platelet Volume 10.6 fL 8.9-12.4 Neut% 63.1 % 40.4-72.8 Lymph % 22.4 % 17.0-46.1 [place] % 12.2 % 4.3-13.2 Eo% 2.1 % 0.0-6.6 Bas% 0.2 % 0.0-1.1 Neut# 3.88 K/uL 1.0-7.0 Lymph # 1.38 K/uL 0.8-3.4 [place] # 0.75 K/uL 0.3-0.9 Eos # 0.13 K/uL 0.0-0.5 Baso # 0.01 K/uL 0.0-0.1 Laboratory test finding 10/22/2011 [facility] Prealbumin 22.4 mg/dL 16.6- 30.0 Thyroid Stim Hormone 1.44 uIU/mL 0.49-4.67 Free T4 0.96 ng/dL 0.71-1.85 C-Reactive Protein,Quant 5.8 mg/L High 0.0-4.9 Vitamin D,25-Hydroxy 31.6 ng/mL 30.0-100.0 86 LDL Cholesterol Profile 10/22/2011 [facility] Cholesterol 242 mg/dL High 120-200 Triglycerides 270 mg/dL High 16-231 HDL Cholesterol 49 mg/dL 29-83 LDL-Cholesterol 139 mg/dL 62-185 Basic Metabolic Panel 10/22/2011 [facility] Glucose 73 mg/dL Low 76-115 BUN 10 mg/dL 5-23 Creatinine 0.7 mg/dL 0.5-1.4 Glom Filtration Rate, Estimate >60 mL/min >60 If >60 mL/min >60 87 BUN/Creat 14.2 ratio Sodium 142 mmol/L 136-145 Potassium 3.6 mmol/L 3.5-5.1 Chloride 105 mmol/L 98-107 Carbon Dioxide 28 mEq/L 18-29 Anion Gap 13 mEq/L 8-16 Calcium 8.9 mg/dL 8.5-10.1 Liver Function Tests 10/22/2011 [facility] Total Protein 7.0 g/dL 6.3-8.0 Albumin 4.0 g/dL 3.5-5.0 Globulin 3.0 g/dL 1.9-4.3 Alb/Glob 1.3 ratio Bilirubin,Total 0.5 mg/dL 0.2-1.2 Bilirubin,Direct 0.1 mg/dL 0.1-0.4 Bilirubin,Indirect 0.4 mg/dL 0.0-0.9 Sgot/Ast 25 U/L 16-40 SGPT/Alt 29 U/L Low 30-65 Alkaline Phosphatase 80 U/L 50-136 1 SENT BY [facility], FAST HR, LOW BP 2 POSITIVE for C.Diff Toxin B 3 ORAL VANCOMYCIN {PO} 4 DISCONTINUING BROAD SPECTRUM ANTIBIOTICS IS RECOMMENDED. 5 URINE WBC >100/HPF 6 URINE, CLEAN CATCH 7 NO GROWTH: FINAL REPORT 8 Because ethnic data is not always readily available, this report includes an eGFR for both -Americans and non- Americans. The National Kidney Disease Education Program (NKDEP) does not endorse the use of the MDRD equation for patients that are not between the ages of 18 and 70, are , have extremes of body size, muscle mass, or nutritional status, or are non- or non-. According to the National Kidney Foundation, irrespective of diagnosis, the stage of the disease is based on the level of kidney function: Stage Description GFR(mL/min/1.73 m(2)) 1 Kidney damage with normal or decreased GFR 90 2 Kidney damage with mild decrease in GFR 60-89 3 Moderate decrease in GFR 30-59 4 Severe decrease in GFR 15-29 5 Kidney failure <15 (or dialysis) 9 Desirable: <150 Borderline High: 150-199 High: 200-499 Very High: >500 10 Desirable: <200 Borderline High: 200-239 High: >239 11 Low: <40 Desirable: 40-60 High: >60 12 Desirable: <100 Near Optimal: 100-129 Borderline High: 130-159 High: 160-189 Very High: >189 13 [id number] Therapeutic target for the treatment of diabetes mellitus patients is <7% HBA1C, and in selective patients <6.0%. Please refer to [place] [employer] diabetic care guidelines for further information. 15 [id number] 18 Because ethnic data is not always readily available, this report includes an eGFR for both -Americans and non- Americans. The National Kidney Disease Education Program (NKDEP) does not endorse the use of the MDRD equation for patients that are not between the ages of 18 and 70, are , have extremes of body size, muscle mass, or nutritional status, or are non- or non-. According to the National Kidney Foundation, irrespective of diagnosis, the stage of the disease is based on the level of kidney function: Stage Description GFR(mL/min/1.73 m(2)) 1 Kidney damage with normal or decreased GFR 90 2 Kidney damage with mild decrease in GFR 60-89 3 Moderate decrease in GFR 30-59 4 Severe decrease in GFR 15-29 5 Kidney failure <15 (or dialysis) 19 Desirable: <150 Borderline High: 150-199 High: 200-499 Very High: >500 20 Desirable: <200 Borderline High: 200-239 High: >239 21 Low: <40 Desirable: 40-60 High: >60 22 Desirable: <100 Near Optimal: 100-129 Borderline High: 130-159 High: 160-189 Very High: >189 23 [id number] 24 Low risk: <1.00 Average risk: 1.00-3.00 High risk: >3.00 25 [id number] 26 Normal Range 180 to 914 Indeterminate Range 145 to 180 Deficient Range <145 27 Therapeutic target for the treatment of diabetes mellitus patients is <7% HBA1C, and in selective patients <6.0%. Please refer to [place] [employer] diabetic care guidelines for further information. 28 Because ethnic data is not always readily available, this report includes an eGFR for both -Americans and non- Americans. The National Kidney Disease Education Program (NKDEP) does not endorse the use of the MDRD equation for patients that are not between the ages of 18 and 70, are , have extremes of body size, muscle mass, or nutritional status, or are non- or non-. According to the National Kidney Foundation, irrespective of diagnosis, the stage of the disease is based on the level of kidney function: Stage Description GFR(mL/min/1.73 m(2)) 1 Kidney damage with normal or decreased GFR 90 2 Kidney damage with mild decrease in GFR 60-89 3 Moderate decrease in GFR 30-59 4 Severe decrease in GFR 15-29 5 Kidney failure <15 (or dialysis) 29 Desirable: <150 Borderline High: 150-199 High: 200-499 Very High: >500 30 Desirable: <200 Borderline High: 200-239 High: >239 31 Low: <40 Desirable: 40-60 High: >60 32 Desirable: <100 Near Optimal: 100-129 Borderline High: 130-159 High: 160-189 Very High: >189 33 Low risk: <1.00 Average risk: 1.00-3.00 High risk: >3.00 34 [id number] 36 Therapeutic target for the treatment of diabetes mellitus patients is <7% HBA1C, and in selective patients <6.0%. Please refer to [place] [employer] diabetic care guidelines for further information. 37 Normal Range 180 to 914 Indeterminate Range 145 to 180 Deficient Range <145 38 E66.9 J44.9 39 Elevated levels of HbA1c suggest the need for more aggressive treatment of glycemia. The [place] [employer] recommends that a primary goal of therapy should be a HbA1c of <7% and that physicians should re-evaluate the treatment regimen in patients with HbA1c values consistently >8%. 40 Note: Persistent reduction for 3 months or more in an eGFR <60 mL/min/1.73 m2 defines CKD. Patients with eGFR values >/=60 mL/min/1.73 m2 may also have CKD if evidence of persistent proteinuria is present. The original MDRD equation for estimated GFR is not valid for patients less than 18 years of age. Additional information may be found at www.kdoqi.org. 41 Values below the stated reference ranges of AST and ALT can be seen in normal populations. Clinical correlation is suggested. 42 Reference Guidelines*: Desirable: ........... < 200 mg/dL Borderline High: ..... 200-239 mg/dL High: ................ >=240 mg/dL * The National Cholesterol Education Program (NCEP) 43 Reference Guidelines*: Normal: ............. < 150 mg/dL Borderline High: .... 150-199 mg/dL High: ............... 200-499 mg/dL Very High: .......... > 500 mg/dL * Source: National Cholesterol Education Program (NCEP) 44 Reference Guidelines*: Low HDL: ..... < 40 mg/dL Normal: ..... 40-60 mg/dL Desirable: ... > 60 mg/dL *The National Cholesterol Education Program(NCEP) 45 Reference Guidelines*: Optimal:........... <100 mg/dL Near Optimal....... 100-129 mg/dL Borderline High.... 130-159 mg/dL High............... 160-189 mg/dL Very High.......... >=190 mg/dL * Source: National Cholesterol Education Program (NCEP) 46 NORMALLY MENSTRUATING FEMALES: Follicular Phase:............... 2.3-12.6 mIU/mL Mid-Cycle Peak:................. 5.2-17.5 mIU/mL Luteal Phase:................... 1.7-9.5 mIU/mL POSTMENOPAUSAL FEMALES: On menopausal hormone therapy (MHT)... 5.9-72.8 mIU/mL Not on MHT ........................... 0.7-10.8 mIU/mL 47 Pubertal adults FEMALES, menstrual cycle phases: Follicular Phase............. 1.9-12.8 mIU/mL Mid-Cycle Peak............... 22.2-76.1 mIU/mL Luteal Phase................. 0.6-13.5 mIU/mL Post-meonpausal FEMALE: On menopausal hormone therapy (MHT) ... 1.1-52.4 mIU/mL Not on MHT ............................ 8.6-61.8 mIU/mL 48 Non- ..... 2.2-30.3 ng/mL ......... 8.1-347.6 ng/mL Post-Menopausal .. 0.7-31.5 ng/mL 49 Reference Range: Follicular Phase ............... 19.5 - 144.2 pg/mL Mid-Cycle Peak ................. 63.9 - 356.7 pg/mL Luteal Phase ................... 55.8 - 214.2 pg/mL Postmenopausal Female .......... 0 - 32.2 pg/mL 50 Performed at: - [facility] [id number] Oxyacetylene Welder: Frandy Chavarria MD, Phone: [phone] 51 [facility] [place] 233 52 Therapeutic target for the treatment of diabetes Mellitus patients is <7% HBA1C, and in selective patients <6.0%.Please refer to [place] [employer] Diabetic care guidelines for further information. 53 [facility] [place] 2334 54 Normal Range 180 to 914 Indeterminate Range 145 to 180 Deficient Range <145 55 [facility] [place] 2334 56 Desirable <150 Borderline high 150-199 High 200-499 Very High >500 57 Desirable <200 Borderline high 200-239 High >239 58 Low <40 Desirable: 40-60 High: >60 59 Desirable: <100 mg/dL Near Optimal: 100-129 mg/dL Borderline High: 130-159 mg/dL High: 160-189 mg/dL Very High: >189 mg/dL 60 [facility] [place] 2282 61 Because ethnic data is not always readily available, this report includes an eGFR for both -Americans and non- Americans. The National Kidney Disease Education Program (NKDEP) does not endorse the use of the MDRD equation for patients that are not between the ages of 18 and 70, are , have extremes of body size, muscle mass, or nutritional status, or are non- or non-. According to the National Kidney Foundation, irrespective of diagnosis, the stage of the disease is based on the level of kidney function: Stage Description GFR(mL/min/1.73 m(2)) 1 Kidney damage with normal or decreased GFR 90 2 Kidney damage with mild decrease in GFR 60-89 3 Moderate decrease in GFR 30-59 4 Severe decrease in GFR 15-29 5 Kidney failure <15 (or dialysis) 62 Note: Persistent reduction for 3 months or more in an eGFR <60 mL/min/1.73 m2 defines CKD. Patients with eGFR values >/=60 mL/min/1.73 m2 may also have CKD if evidence of persistent proteinuria is present. The original MDRD equation for estimated GFR is not valid for patients less than 18 years of age. Additional information may be found at www.kdoqi.org. 63 NOTE CHANGE IN B12 REFERENCE RANGE 64 Elevated levels of HbA1c suggest the need for more aggressive treatment of glycemia. The [place] [employer] recommends that a primary goal of therapy should be a HbA1c of <7% and that physicians should re-evaluate the treatment regimen in patients with HbA1c values consistently >8%. 65 Performed at: [facility] - [facility] [id number] Oxyacetylene Welder: Frandy Chavarria MD, Phone: [phone] 66 Reference Guidelines*: Desirable: ........... < 200 mg/dL Borderline High: ..... 200-239 mg/dL High: ................ >=240 mg/dL * The National Cholesterol Education Program (NCEP) 67 Reference Guidelines*: Normal: ............. < 150 mg/dL Borderline High: .... 150-199 mg/dL High: ............... 200-499 mg/dL Very High: .......... > 500 mg/dL * Source: National Cholesterol Education Program (NCEP) 68 Reference Guidelines*: Low HDL: ..... < 40 mg/dL Normal: ..... 40-60 mg/dL Desirable: ... > 60 mg/dL *The National Cholesterol Education Program(NCEP) 69 Reference Guidelines*: Optimal:........... <100 mg/dL Near Optimal....... 100-129 mg/dL Borderline High.... 130-159 mg/dL High............... 160-189 mg/dL Very High.......... >=190 mg/dL * Source: National Cholesterol Education Program (NCEP) 70 Note: Persistent reduction for 3 months or more in an eGFR <60 mL/min/1.73 m2 defines CKD. Patients with eGFR values >/=60 mL/min/1.73 m2 may also have CKD if evidence of persistent proteinuria is present. The original MDRD equation for estimated GFR is not valid for patients less than 18 years of age. Additional information may be found at www.kdoqi.org. 71 Specimen is hemolyzed. Called [facility] at 1923 on 11/16/13 for specimen recollection. 72 0 - 0.5 ng/mL: No evidence of myocardial injury 0.6 - 1.4 ng/mL: Mild elevation, suggesting possible myocardial injury > 1.4 ng/mL: Consistent with myocardial injury 73 Specimen is hemolyzed. Called [facility] at 1923 on 11/16/13 for specimen recollection. 74 < 5%=non AMI 5 - 10%=borderline for AMI > 10%=positive for AMI FOR DIAGNOSTIC PURPOSES, THE CK-MB RESULT (MASS AND RELATIVE PERCENT INDEX) SHOULD BE USED IN CONJUNCTION WITH OTHER PERTINENT CLINICAL DATA. 75 Note: Persistent reduction for 3 months or more in an eGFR <60 mL/min/1.73 m2 defines CKD. Patients with eGFR values >/=60 mL/min/1.73 m2 may also have CKD if evidence of persistent proteinuria is present. The original MDRD equation for estimated GFR is not valid for patients less than 16 years of age. Additional information may be found at [email or web address]. 76 A1c value between 5.7% and 6.4% is considered at increased risk for diabetes. A1c value greater than 6.5 % is considered essentially diagnostic for Type II diabetes. Current guidelines recommend a treatment goal of <7% for diabetic patients. This method will measure glycosylated hemoglobin variants, HbS, HbG, HbH, HbWayne, HbC, HbE, etc. Other hemoglobin- opathies may give incorrect results with this test. 77 Vitamin D deficiency has been defined by the [place] [employer] and an Endocrine Society practice guideline as a level of serum 25-OH vitamin D less than 20 ng/mL (1,2). The Endocrine Society went on to further define vitamin D insufficiency as a level between 21 and 29 ng/mL (2). 1. IOM ([place] [employer]). 2010. Dietary reference intakes for calcium and D. [place]: The National Academies Press. 2. Davon MF, Rodger LEONARDO, Naren MIKE, et al. Evaluation, treatment, and prevention of vitamin D deficiency: an Endocrine Society clinical practice guideline. JCEM. 2010; 96(7):1911-30. Performed at: RN - [facility] [address] [id number] Oxyacetylene Welder: Melba Preciado MD, Phone: [phone] 78 Relative Risk for Future Cardiovascular Event Low <1.00 Average 1.00 - 3.00 High >3.00 79 Note: Persistent reduction for 3 months or more in an eGFR <60 mL/min/1.73 m2 defines CKD. Patients with eGFR values >/=60 mL/min/1.73 m2 may also have CKD if evidence of persistent proteinuria is present. The original MDRD equation for estimated GFR is not valid for patients less than 18 years of age. Additional information may be found at [email or web address]. 80 NO GROWTH: FINAL REPORT 81 Note: Persistent reduction for 3 months or more in an eGFR <60 mL/min/1.73 m2 defines CKD. Patients with eGFR values >/=60 mL/min/1.73 m2 may also have CKD if evidence of persistent proteinuria is present. The original MDRD equation for estimated GFR is not valid for patients less than 18 years of age. Additional information may be found at [email or web address]. 82 Result confirmed by repeat analysis. 83 Note: Persistent reduction for 3 months or more in an eGFR <60 mL/min/1.73 m2 defines CKD. Patients with eGFR values >/=60 mL/min/1.73 m2 may also have CKD if evidence of persistent proteinuria is present. The original MDRD equation for estimated GFR is not valid for patients less than 18 years of age. Additional information may be found at [email or web address]. 84 Note: Persistent reduction for 3 months or more in an eGFR <60 mL/min/1.73 m2 defines CKD. Patients with eGFR values >/=60 mL/min/1.73 m2 may also have CKD if evidence of persistent proteinuria is present. The original MDRD equation for estimated GFR is not valid for patients less than 18 years of age. Additional information may be found at [email or web address]. 85 Relative Risk for Future Cardiovascular Event Low <1.00 Average 1.00 - 3.00 High >3.00 86 Vitamin D deficiency has been defined by the [place] [employer] and an Endocrine Society practice guideline as a level of serum 25-OH vitamin D less than 20 ng/mL (1,2). The Endocrine Society went on to further define vitamin D insufficiency as a level between 21 and 29 ng/mL (2). 1. IOM ([place] [employer] [place]). 2010. Dietary reference intakes for calcium and D. [place]: The National Academies Press. 2. Davon MF, Rodger [place], Naren MIKE, et al. Evaluation, treatment, and prevention of vitamin D deficiency: an Endocrine Society clinical practice guideline. JCEM. 2010; 96(7):1911-30. Performed at: RN - [facility] [address] [id number] Oxyacetylene Welder: Brian Fulton MD, Phone: [phone] Note: Persistent reduction for 3 months or more in an eGFR <60 mL/min/1.73 m2 defines CKD. Patients with eGFR values >/=60 mL/min/1.73 m2 may also have CKD if evidence of persistent proteinuria is present. The original MDRD equation for estimated GFR is not valid for patients less than 18 years of age. Additional information may be found at [email or web address]. Procedures Date Code Description Status 03/30/2018 40674 Injection DX/Therapeutic/Prophy Completed 12/13/2017 62010 Injection DX/Therapeutic/Prophy Completed 11/01/2017 02118 Injection DX/Therapeutic/Prophy Completed 11/01/2017 97355 Spirometry Completed 07/29/2017 73949 Injection DX/Therapeutic/Prophy Completed 07/01/2017 33919 Injection DX/Therapeutic/Prophy Completed 05/26/2017 24654 Injection DX/Therapeutic/Prophy Completed 04/26/2017 68468 Injection DX/Therapeutic/Prophy Completed 03/03/2017 34330 Tympanometry Completed 03/03/2017 49111 Spirometry Completed 09/21/2016 57875 Spirometry Completed 09/21/2016 53287 Tympanometry Completed 07/08/2016 00675 Spirometry Completed 05/20/2016 57118 Spirometry Completed 05/20/2016 85289 Tympanometry Completed 12/04/2015 62042 Oximetry Pulse Or Ear Completed 10/13/2015 61020 Audiometry, Bekesy, Screening Completed 10/13/2015 70307 EKG Completed 10/13/2015 69171 Visual Screening Test Completed 06/26/2015 52521 Spirometry Completed 06/26/2015 69186 Tympanometry Completed 04/24/2015 41784 EKG Completed 04/03/2015 49540 Spirometry Completed 11/07/2014 01207 Oximetry Pulse Or Ear Completed 11/07/2014 28460 Spirometry Completed 11/07/2014 05110 Tympanometry Completed 10/08/2014 33653 Spirometry Completed 08/08/2014 90190 Spirometry Completed 07/23/2014 44336 Visual Screening Test Completed 07/23/2014 34395 Spirometry Completed 07/23/2014 22024 EKG Completed 07/23/2014 88371 Audiometry, Bekesy, Screening Completed 07/09/2014 42418 Tympanometry Completed 07/09/2014 72176 Spirometry Completed 07/09/2014 30876 Oximetry Pulse Or Ear Completed 04/30/2014 98126 Spirometry Completed 04/30/2014 55983 Spirometry Completed 04/30/2014 75556 Tympanometry Completed 01/22/2014 90468 Tympanometry Completed 01/22/2014 69594 Tympanometry Completed 01/22/2014 57745 Ear Irrigation Completed 08/20/2013 37360 Tympanometry Completed 08/20/2013 59955 Spirometry Completed 05/03/2013 34860 Spirometry Completed 05/03/2013 95505 Tympanometry Completed 03/30/2013 01579 Injection DX/Therapeutic/Prophy Completed 03/30/2013 19108 Spirometry Completed 03/30/2013 29652 Tympanometry Completed 02/21/2013 48918 Spirometry Completed 02/12/2013 54740 Spirometry Completed 01/05/2013 27645 Tympanometry Completed 01/05/2013 13422 Spirometry Completed 11/23/2012 64399 Spirometry Completed 11/23/2012 94970 Tympanometry Completed 10/26/2012 07133 Spirometry Completed 10/26/2012 99395 Tympanometry Completed 09/26/2012 65603 Spirometry Completed 09/12/2012 45919 Spirometry Completed 07/25/2012 26526 Spirometry Completed 07/25/2012 02004 Tympanometry Completed 07/13/2012 63629 Tympanometry Completed 07/13/2012 36889 Spirometry Completed 07/13/2012 90588 Injection DX/Therapeutic/Prophy Completed 07/13/2012 74151 Injection DX/Therapeutic/Prophy Completed 01/04/2012 46187 Spirometry Completed 01/04/2012 49894 Tympanometry Completed 08/17/2011 31809 Tympanometry Completed 11/10/2010 27765 Spirometry Completed 11/10/2010 21076 Tympanometry Completed Encounters Type Date Location Provider Dx Diagnosis Office Visit 06/06/2018 [facility] Jesus Landrum, 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 J44.9 Chronic obstructive pulmonary disease, unspecified R73.01 Impaired fasting glucose L40.9 Psoriasis, unspecified M15.9 Polyosteoarthritis, unspecified E55.9 Vitamin D deficiency, unspecified E83.42 Hypomagnesemia E78.2 Mixed hyperlipidemia E87.6 Hypokalemia M79.606 Pain in leg, unspecified Z93.3 Colostomy status B35.4 Tinea corporis E53.9 Vitamin B deficiency, unspecified J30.2 Other seasonal allergic rhinitis M54.5 Low back pain M54.2 Cervicalgia Z96.642 Presence of left artificial hip joint R26.81 Unsteadiness on feet F17.211 Nicotine dependence, cigarettes, in remission R06.02 Shortness of breath J30.9 Allergic rhinitis, unspecified M25.552 Pain in left hip F41.9 Anxiety disorder, unspecified R26.89 Other abnormalities of gait and mobility F33.9 Major depressive disorder, recurrent, unspecified E66.3 Overweight R10.84 Generalized abdominal pain J20.9 Acute bronchitis, unspecified R07.9 Chest pain, unspecified A04.71 Enterocolitis due to Clostridium difficile, recurrent R29.6 Repeated falls Office Visit 05/18/2018 3:30p [facility] yolette I50.42 Chronic combined Tobi Morrison systolic and diastolic hrt fail J44.9 Chronic obstructive pulmonary disease, unspecified R73.01 Impaired fasting glucose M79.606 Pain in leg, unspecified Z93.3 Colostomy status L40.9 Psoriasis, unspecified M15.9 Polyosteoarthritis, unspecified E55.9 Vitamin D deficiency, unspecified B35.4 Tinea corporis E53.9 Vitamin B deficiency, unspecified J30.2 Other seasonal allergic rhinitis M54.5 Low back pain M54.2 Cervicalgia Z96.642 Presence of left artificial hip joint R26.81 Unsteadiness on feet F17.211 Nicotine dependence, cigarettes, in remission R06.02 Shortness of breath J30.9 Allergic rhinitis, unspecified M25.552 Pain in left hip F41.9 Anxiety disorder, unspecified E87.6 Hypokalemia R26.89 Other abnormalities of gait and mobility F33.9 Major depressive disorder, recurrent, unspecified E66.3 Overweight R10.84 Generalized abdominal pain E83.42 Hypomagnesemia E78.2 Mixed hyperlipidemia J20.9 Acute bronchitis, unspecified Office Visit 03/30/2018 3:45p [facility] DialloJesus valenzuela I50.42 Chronic combined Margi Morrison. systolic and diastolic hrt fail J44.9 Chronic obstructive pulmonary disease, unspecified R73.01 Impaired fasting glucose M79.606 Pain in leg, unspecified Z93.3 Colostomy status L40.9 Psoriasis, unspecified M15.9 Polyosteoarthritis, unspecified E55.9 Vitamin D deficiency, unspecified B35.4 Tinea corporis E53.9 Vitamin B deficiency, unspecified J30.2 Other seasonal allergic rhinitis M54.5 Low back pain M54.2 Cervicalgia Z96.642 Presence of left artificial hip joint R26.81 Unsteadiness on feet F17.211 Nicotine dependence, cigarettes, in remission R06.02 Shortness of breath J30.9 Allergic rhinitis, unspecified M25.552 Pain in left hip F41.9 Anxiety disorder, unspecified E87.6 Hypokalemia R26.89 Other abnormalities of gait and mobility F33.9 Major depressive disorder, recurrent, unspecified E66.3 Overweight R10.84 Generalized abdominal pain E83.42 Hypomagnesemia E78.2 Mixed hyperlipidemia J20.9 Acute bronchitis, unspecified Z28.20 Immuniz not crd out bec patient decision for unsp reason Office Visit 03/07/2018 3:30p [facility] Jesus Landrum I50.42 Chronic combined MMargi Jones. systolic and diastolic hrt fail J44.9 Chronic obstructive pulmonary disease, unspecified R73.01 Impaired fasting glucose M79.606 Pain in leg, unspecified Z93.3 Colostomy status L40.9 Psoriasis, unspecified M15.9 Polyosteoarthritis, unspecified E55.9 Vitamin D deficiency, unspecified B35.4 Tinea corporis E53.9 Vitamin B deficiency, unspecified J30.2 Other seasonal allergic rhinitis M54.5 Low back pain M54.2 Cervicalgia Z96.642 Presence of left artificial hip joint R26.81 Unsteadiness on feet F17.211 Nicotine dependence, cigarettes, in remission R06.02 Shortness of breath J30.9 Allergic rhinitis, unspecified M25.552 Pain in left hip F41.9 Anxiety disorder, unspecified E87.6 Hypokalemia R26.89 Other abnormalities of gait and mobility F33.9 Major depressive disorder, recurrent, unspecified E66.3 Overweight R10.84 Generalized abdominal pain E83.42 Hypomagnesemia E78.2 Mixed hyperlipidemia J01.40 Acute pansinusitis, unspecified Office Visit 02/02/2018 4:15p [facility] Jesus Landrum J44.9 Chronic obstructive MRobert, MRobertD. pulmonary disease, unspecified M15.9 Polyosteoarthritis, unspecified L40.9 Psoriasis, unspecified R73.01 Impaired fasting glucose E55.9 Vitamin D deficiency, unspecified I50.42 Chronic combined systolic and diastolic hrt fail B35.4 Tinea corporis E53.9 Vitamin B deficiency, unspecified J30.2 Other seasonal allergic rhinitis Z93.3 Colostomy status M54.5 Low back pain M54.2 Cervicalgia Z96.642 Presence of left artificial hip joint R26.81 Unsteadiness on feet F17.211 Nicotine dependence, cigarettes, in remission R06.02 Shortness of breath J30.9 Allergic rhinitis, unspecified M25.552 Pain in left hip F41.9 Anxiety disorder, unspecified E87.6 Hypokalemia R26.89 Other abnormalities of gait and mobility F33.9 Major depressive disorder, recurrent, unspecified E66.3 Overweight R10.84 Generalized abdominal pain E83.42 Hypomagnesemia M79.606 Pain in leg, unspecified E78.2 Mixed hyperlipidemia Office Visit 01/12/2018 1:00p [facility] Jesus Landrum J44.9 Chronic obstructive M., M.D. pulmonary disease, unspecified I50.42 Chronic combined systolic and diastolic hrt fail M15.9 Polyosteoarthritis, unspecified M54.5 Low back pain R73.01 Impaired fasting glucose M25.552 Pain in left hip M79.606 Pain in leg, unspecified M54.2 Cervicalgia F41.9 Anxiety disorder, unspecified R06.02 Shortness of breath J30.2 Other seasonal allergic rhinitis E87.6 Hypokalemia E83.42 Hypomagnesemia F33.9 Major depressive disorder, recurrent, unspecified Z93.3 Colostomy status Z96.642 Presence of left artificial hip joint R26.89 Other abnormalities of gait and mobility R26.81 Unsteadiness on feet F17.211 Nicotine dependence, cigarettes, in remission J30.9 Allergic rhinitis, unspecified R10.84 Generalized abdominal pain L40.9 Psoriasis, unspecified E66.3 Overweight E53.9 Vitamin B deficiency, unspecified B35.4 Tinea corporis E55.9 Vitamin D deficiency, unspecified Office [facility] 12[facility]13[facility]2017 [facility] J44.9 Chronic obstructive M., MRobertD. pulmonary disease, unspecified I50.42 Chronic combined systolic and diastolic hrt fail M15.9 Polyosteoarthritis, unspecified M54.5 Low back pain R73.01 Impaired fasting glucose M25.552 Pain in left hip M79.606 Pain in leg, unspecified M54.2 Cervicalgia F41.9 Anxiety disorder, unspecified R06.02 Shortness of breath J30.2 Other seasonal allergic rhinitis E87.6 Hypokalemia E83.42 Hypomagnesemia F33.9 Major depressive disorder, recurrent, unspecified Z93.3 Colostomy status Z96.642 Presence of left artificial hip joint R26.89 Other abnormalities of gait and mobility R26.81 Unsteadiness on feet F17.211 Nicotine dependence, cigarettes, in remission J30.9 Allergic rhinitis, unspecified R10.84 Generalized abdominal pain L40.9 Psoriasis, unspecified E66.3 Overweight E53.9 Vitamin B deficiency, unspecified B35.4 Tinea corporis J20.9 Acute bronchitis, unspecified Office Visit 11/01/2017 2:15p [facility] DialloJesus valenzuela J44.9 Chronic obstructive M., MRobertD. pulmonary disease, unspecified I50.42 Chronic combined systolic and diastolic hrt fail M15.9 Polyosteoarthritis, unspecified M54.5 Low back pain R73.01 Impaired fasting glucose M25.552 Pain in left hip M79.606 Pain in leg, unspecified M54.2 Cervicalgia F41.9 Anxiety disorder, unspecified R06.02 Shortness of breath J30.2 Other seasonal allergic rhinitis E87.6 Hypokalemia E83.42 Hypomagnesemia F33.9 Major depressive disorder, recurrent, unspecified Z93.3 Colostomy status Z96.642 Presence of left artificial hip joint R26.89 Other abnormalities of gait and mobility R26.81 Unsteadiness on feet F17.211 Nicotine dependence, cigarettes, in remission J30.9 Allergic rhinitis, unspecified R10.84 Generalized abdominal pain L40.9 Psoriasis, unspecified E66.3 Overweight E53.9 Vitamin B deficiency, unspecified B35.4 Tinea corporis J20.9 Acute bronchitis, unspecified Office Visit 08/18/2017 3:45p [facility] DialloAusten valenzuelaelio J44.9 Chronic obstructive M., MRobertD. pulmonary disease, unspecified M25.552 Pain in left hip M79.606 Pain in leg, unspecified M15.9 Polyosteoarthritis, unspecified M54.2 Cervicalgia M54.5 Low back pain I50.42 Chronic combined systolic and diastolic hrt fail F41.9 Anxiety disorder, unspecified R06.02 Shortness of breath J30.2 Other seasonal allergic rhinitis E87.6 Hypokalemia E83.42 Hypomagnesemia F33.9 Major depressive disorder, recurrent, unspecified Z93.3 Colostomy status Z96.642 Presence of left artificial hip joint R73.01 Impaired fasting glucose R26.89 Other abnormalities of gait and mobility R26.81 Unsteadiness on feet F17.211 Nicotine dependence, cigarettes, in remission J30.9 Allergic rhinitis, unspecified R10.84 Generalized abdominal pain L40.9 Psoriasis, unspecified E66.3 Overweight E53.9 Vitamin B deficiency, unspecified B35.4 Tinea corporis J20.9 Acute bronchitis, unspecified Office Visit 08/03/2017 3:00p [facility] DialloAustenelio J44.9 Chronic obstructive M., MRobertD. pulmonary disease, unspecified M25.552 Pain in left hip M79.606 Pain in leg, unspecified M15.9 Polyosteoarthritis, unspecified M54.2 Cervicalgia M54.5 Low back pain I50.42 Chronic combined systolic and diastolic hrt fail F41.9 Anxiety disorder, unspecified R06.02 Shortness of breath J30.2 Other seasonal allergic rhinitis E87.6 Hypokalemia E83.42 Hypomagnesemia F33.9 Major depressive disorder, recurrent, unspecified Z93.3 Colostomy status Z96.642 Presence of left artificial hip joint R73.01 Impaired fasting glucose R26.89 Other abnormalities of gait and mobility R26.81 Unsteadiness on feet F17.211 Nicotine dependence, cigarettes, in remission J30.9 Allergic rhinitis, unspecified R10.84 Generalized abdominal pain L40.9 Psoriasis, unspecified E66.3 Overweight E53.9 Vitamin B deficiency, unspecified B35.4 Tinea corporis Office Visit 07/01/2017 1:30p [facility] Diallo, Kamalayolette J44.9 Chronic obstructive M., MRobertD. pulmonary disease, unspecified M25.552 Pain in left hip M79.606 Pain in leg, unspecified M15.9 Polyosteoarthritis, unspecified M54.2 Cervicalgia M54.5 Low back pain I50.42 Chronic combined systolic and diastolic hrt fail F41.9 Anxiety disorder, unspecified R06.02 Shortness of breath J30.2 Other seasonal allergic rhinitis E87.6 Hypokalemia E83.42 Hypomagnesemia F33.9 Major depressive disorder, recurrent, unspecified Z93.3 Colostomy status Z96.642 Presence of left artificial hip joint R73.01 Impaired fasting glucose R26.89 Other abnormalities of gait and mobility R26.81 Unsteadiness on feet F17.211 Nicotine dependence, cigarettes, in remission J30.9 Allergic rhinitis, unspecified R10.84 Generalized abdominal pain L40.9 Psoriasis, unspecified E66.3 Overweight E53.9 Vitamin B deficiency, unspecified B35.4 Tinea corporis Office Visit 05/26/2017 1:30p [facility] Diallo Kamalayolette J44.9 Chronic obstructive MRobert, MRobertD. pulmonary disease, unspecified M25.552 Pain in left hip M79.606 Pain in leg, unspecified M15.9 Polyosteoarthritis, unspecified M54.2 Cervicalgia M54.5 Low back pain I50.42 Chronic combined systolic and diastolic hrt fail F41.9 Anxiety disorder, unspecified R06.02 Shortness of breath J30.2 Other seasonal allergic rhinitis E87.6 Hypokalemia E83.42 Hypomagnesemia F33.9 Major depressive disorder, recurrent, unspecified Z93.3 Colostomy status Z96.642 Presence of left artificial hip joint R73.01 Impaired fasting glucose R26.89 Other abnormalities of gait and mobility R26.81 Unsteadiness on feet F17.211 Nicotine dependence, cigarettes, in remission J30.9 Allergic rhinitis, unspecified R10.84 Generalized abdominal pain L40.9 Psoriasis, unspecified E66.3 Overweight E53.9 Vitamin B deficiency, unspecified B35.4 Tinea corporis Office Visit 04/26/2017 2:15p [facility] DialloAustenelio J44.9 Chronic obstructive M., M.D. pulmonary disease, unspecified M25.552 Pain in left hip M79.606 Pain in leg, unspecified M15.9 Polyosteoarthritis, unspecified M54.2 Cervicalgia M54.5 Low back pain I50.42 Chronic combined systolic and diastolic hrt fail F41.9 Anxiety disorder, unspecified R06.02 Shortness of breath J30.2 Other seasonal allergic rhinitis E87.6 Hypokalemia E83.42 Hypomagnesemia F33.9 Major depressive disorder, recurrent, unspecified Z93.3 Colostomy status Z96.642 Presence of left artificial hip joint R73.01 Impaired fasting glucose R26.89 Other abnormalities of gait and mobility R26.81 Unsteadiness on feet F17.211 Nicotine dependence, cigarettes, in remission J30.9 Allergic rhinitis, unspecified R10.84 Generalized abdominal pain L40.9 Psoriasis, unspecified E66.3 Overweight E53.9 Vitamin B deficiency, unspecified B37.3 Candidiasis of vulva and vagina B35.4 Tinea corporis Office Visit 04/14/2017 2:00p [facility] Diallo, Kamalayolette J44.9 Chronic obstructive M., M.D. pulmonary disease, unspecified M25.552 Pain in left hip M79.606 Pain in leg, unspecified M15.9 Polyosteoarthritis, unspecified M54.2 Cervicalgia M54.5 Low back pain I50.42 Chronic combined systolic and diastolic hrt fail F41.9 Anxiety disorder, unspecified R06.02 Shortness of breath Z68.28 Body mass index (BMI) 28.0-28.9, adult J30.2 Other seasonal allergic rhinitis E87.6 Hypokalemia E83.42 Hypomagnesemia F33.9 Major depressive disorder, recurrent, unspecified Z93.3 Colostomy status Z96.642 Presence of left artificial hip joint R73.01 Impaired fasting glucose R26.89 Other abnormalities of gait and mobility R26.81 Unsteadiness on feet F17.211 Nicotine dependence, cigarettes, in remission J30.9 Allergic rhinitis, unspecified R10.84 Generalized abdominal pain L40.9 Psoriasis, unspecified E66.3 Overweight J20.9 Acute bronchitis, unspecified J01.40 Acute pansinusitis, unspecified H66.93 Otitis media, unspecified, bilateral Z00.01 Encounter for general adult medical exam w abnormal findings B37.3 Candidiasis of vulva and vagina E53.9 Vitamin B deficiency, unspecified Office Visit 03/03/2017 1:45p [facility] Diallo, Kamalayolette J44.9 Chronic obstructive M., MRobertD. pulmonary disease, unspecified M25.552 Pain in left hip M79.606 Pain in leg, unspecified M15.9 Polyosteoarthritis, unspecified M54.2 Cervicalgia M54.5 Low back pain I50.42 Chronic combined systolic and diastolic hrt fail F41.9 Anxiety disorder, unspecified R06.02 Shortness of breath J30.2 Other seasonal allergic rhinitis E87.6 Hypokalemia E83.42 Hypomagnesemia F33.9 Major depressive disorder, recurrent, unspecified Z93.3 Colostomy status Z96.642 Presence of left artificial hip joint R73.01 Impaired fasting glucose R26.89 Other abnormalities of gait and mobility R26.81 Unsteadiness on feet F17.211 Nicotine dependence, cigarettes, in remission J30.9 Allergic rhinitis, unspecified R10.84 Generalized abdominal pain L40.9 Psoriasis, unspecified E66.3 Overweight J20.9 Acute bronchitis, unspecified J01.40 Acute pansinusitis, unspecified H66.93 Otitis media, unspecified, bilateral Office Visit 01/11/2017 1:45p [facility] Diallo Kamalayolette J44.9 Chronic obstructive M., MRobertD. pulmonary disease, unspecified M25.552 Pain in left hip M79.606 Pain in leg, unspecified M15.9 Polyosteoarthritis, unspecified M54.2 Cervicalgia M54.5 Low back pain I50.42 Chronic combined systolic and diastolic hrt fail F41.9 Anxiety disorder, unspecified J30.2 Other seasonal allergic rhinitis E87.6 Hypokalemia E83.42 Hypomagnesemia F33.9 Major depressive disorder, recurrent, unspecified Z93.3 Colostomy status Z96.642 Presence of left artificial hip joint R73.01 Impaired fasting glucose R26.89 Other abnormalities of gait and mobility R26.81 Unsteadiness on feet F17.211 Nicotine dependence, cigarettes, in remission J30.9 Allergic rhinitis, unspecified R10.84 Generalized abdominal pain L40.9 Psoriasis, unspecified E66.3 Overweight Office Visit 12/09/2016 1:30p [facility] Chronic obstructive MRobert MRobertD. pulmonary disease, unspecified M25.552 Pain in left hip M79.606 Pain in leg, unspecified M15.9 Polyosteoarthritis, unspecified M54.2 Cervicalgia M54.5 Low back pain I50.42 Chronic combined systolic and diastolic hrt fail F41.9 Anxiety disorder, unspecified J30.2 Other seasonal allergic rhinitis E87.6 Hypokalemia E83.42 Hypomagnesemia F33.9 Major depressive disorder, recurrent, unspecified Z93.3 Colostomy status Z96.642 Presence of left artificial hip joint R73.01 Impaired fasting glucose R26.89 Other abnormalities of gait and mobility R26.81 Unsteadiness on feet F17.211 Nicotine dependence, cigarettes, in remission J30.9 Allergic rhinitis, unspecified R10.84 Generalized abdominal pain L40.9 Psoriasis, unspecified E66.3 Overweight Office Visit 09/21/2016 1:45p [facility] Jesus Landrum J20.9 Acute bronchitis, Margi Morrison. unspecified J01.40 Acute pansinusitis, unspecified H66.93 Otitis media, unspecified, bilateral R05 Cough R09.81 Nasal congestion R06.02 Shortness of breath J44.9 Chronic obstructive pulmonary disease, unspecified M25.552 Pain in left hip M79.606 Pain in leg, unspecified M15.9 Polyosteoarthritis, unspecified M54.2 Cervicalgia M54.5 Low back pain I50.42 Chronic combined systolic and diastolic hrt fail F41.9 Anxiety disorder, unspecified J30.2 Other seasonal allergic rhinitis E87.6 Hypokalemia E83.42 Hypomagnesemia F33.9 Major depressive disorder, recurrent, unspecified Z93.3 Colostomy status Z96.642 Presence of left artificial hip joint R73.01 Impaired fasting glucose R26.89 Other abnormalities of gait and mobility R26.81 Unsteadiness on feet F17.211 Nicotine dependence, cigarettes, in remission J30.9 Allergic rhinitis, unspecified R10.84 Generalized abdominal pain L40.9 Psoriasis, unspecified E66.3 Overweight Office Visit 09/07/2016 1:30p [facility] Kamalayolette J20.9 Acute bronchitisrPince M.D. unspecified J01.40 Acute pansinusitis, unspecified H66.93 Otitis media, unspecified, bilateral R05 Cough R09.81 Nasal congestion R06.02 Shortness of breath J44.9 Chronic obstructive pulmonary disease, unspecified M25.552 Pain in left hip M79.606 Pain in leg, unspecified M15.9 Polyosteoarthritis, unspecified M54.2 Cervicalgia M54.5 Low back pain I50.42 Chronic combined systolic and diastolic hrt fail F41.9 Anxiety disorder, unspecified J30.2 Other seasonal allergic rhinitis E87.6 Hypokalemia E83.42 Hypomagnesemia F33.9 Major depressive disorder, recurrent, unspecified Z93.3 Colostomy status Z96.642 Presence of left artificial hip joint R73.01 Impaired fasting glucose R26.89 Other abnormalities of gait and mobility R26.81 Unsteadiness on feet F17.211 Nicotine dependence, cigarettes, in remission J30.9 Allergic rhinitis, unspecified R10.84 Generalized abdominal pain B37.3 Candidiasis of vulva and vagina L40.9 Psoriasis, unspecified Office Visit 08/03/2016 3:15p [facility] Diallo, Kamalayolette J20.9 Acute bronchitisPrince M.D. unspecified J01.40 Acute pansinusitis, unspecified H66.93 Otitis media, unspecified, bilateral R05 Cough R09.81 Nasal congestion R06.02 Shortness of breath J44.9 Chronic obstructive pulmonary disease, unspecified M25.552 Pain in left hip M79.606 Pain in leg, unspecified M15.9 Polyosteoarthritis, unspecified M54.2 Cervicalgia M54.5 Low back pain I50.42 Chronic combined systolic and diastolic hrt fail F41.9 Anxiety disorder, unspecified J30.2 Other seasonal allergic rhinitis E87.6 Hypokalemia E83.42 Hypomagnesemia F33.9 Major depressive disorder, recurrent, unspecified Z93.3 Colostomy status Z96.642 Presence of left artificial hip joint R73.01 Impaired fasting glucose R26.89 Other abnormalities of gait and mobility R26.81 Unsteadiness on feet F17.211 Nicotine dependence, cigarettes, in remission J30.9 Allergic rhinitis, unspecified R10.84 Generalized abdominal pain B37.3 Candidiasis of vulva and vagina Office Visit 07/08/2016 11:45a [facility] Diallo Kamalayolette J20.9 Acute bronchitis, Margi Morrison. unspecified J01.40 Acute pansinusitis, unspecified H66.93 Otitis media, unspecified, bilateral R05 Cough R09.81 Nasal congestion R06.02 Shortness of breath J44.9 Chronic obstructive pulmonary disease, unspecified M25.552 Pain in left hip M79.606 Pain in leg, unspecified M15.9 Polyosteoarthritis, unspecified M54.2 Cervicalgia M54.5 Low back pain I50.42 Chronic combined systolic and diastolic hrt fail F41.9 Anxiety disorder, unspecified J30.2 Other seasonal allergic rhinitis E87.6 Hypokalemia E83.42 Hypomagnesemia F33.9 Major depressive disorder, recurrent, unspecified Z93.3 Colostomy status Z96.642 Presence of left artificial hip joint R73.01 Impaired fasting glucose R26.89 Other abnormalities of gait and mobility R26.81 Unsteadiness on feet F17.211 Nicotine dependence, cigarettes, in remission J30.9 Allergic rhinitis, unspecified R10.84 Generalized abdominal pain Office Visit 06/22/2016 1:45p [facility] Diallo, Kamalayolette J44.9 Chronic obstructive MRobert MRobertD. pulmonary disease, unspecified M25.552 Pain in left hip M79.606 Pain in leg, unspecified M15.9 Polyosteoarthritis, unspecified M54.2 Cervicalgia M54.5 Low back pain I50.42 Chronic combined systolic and diastolic hrt fail F41.9 Anxiety disorder, unspecified J30.2 Other seasonal allergic rhinitis E87.6 Hypokalemia E83.42 Hypomagnesemia F33.9 Major depressive disorder, recurrent, unspecified Z93.3 Colostomy status Z96.642 Presence of left artificial hip joint R73.01 Impaired fasting glucose R26.89 Other abnormalities of gait and mobility R26.81 Unsteadiness on feet F17.211 Nicotine dependence, cigarettes, in remission J30.9 Allergic rhinitis, unspecified R06.02 Shortness of breath R10.84 Generalized abdominal pain J20.9 Acute bronchitis, unspecified J01.40 Acute pansinusitis, unspecified H66.93 Otitis media, unspecified, bilateral R05 Cough R09.81 Nasal congestion Office Visit 05/20/2016 1:45p [facility] Jesus Landrum44.Mona Chronic obstructive MRobert MOswaldo. pulmonary disease, unspecified M25.552 Pain in left hip M79.606 Pain in leg, unspecified M15.9 Polyosteoarthritis, unspecified M54.2 Cervicalgia M54.5 Low back pain I50.42 Chronic combined systolic and diastolic hrt fail F41.9 Anxiety disorder, unspecified J30.2 Other seasonal allergic rhinitis E87.6 Hypokalemia E83.42 Hypomagnesemia F33.9 Major depressive disorder, recurrent, unspecified Z93.3 Colostomy status Z96.642 Presence of left artificial hip joint R73.01 Impaired fasting glucose R26.89 Other abnormalities of gait and mobility R26.81 Unsteadiness on feet F17.211 Nicotine dependence, cigarettes, in remission J30.9 Allergic rhinitis, unspecified R06.02 Shortness of breath R10.84 Generalized abdominal pain J20.9 Acute bronchitis, unspecified J01.40 Acute pansinusitis, unspecified H66.93 Otitis media, unspecified, bilateral R05 Cough R09.81 Nasal congestion Office Visit 03/11/2016 3:45p [facility] Jesus Landrum J44.Mona Chronic obstructive MRobert, MRobertD. pulmonary disease, unspecified M25.552 Pain in left hip M79.606 Pain in leg, unspecified M15.9 Polyosteoarthritis, unspecified M54.2 Cervicalgia M54.5 Low back pain I50.42 Chronic combined systolic and diastolic hrt fail F41.9 Anxiety disorder, unspecified J30.2 Other seasonal allergic rhinitis E87.6 Hypokalemia E83.42 Hypomagnesemia F33.9 Major depressive disorder, recurrent, unspecified Z93.3 Colostomy status Z96.642 Presence of left artificial hip joint R73.01 Impaired fasting glucose R26.89 Other abnormalities of gait and mobility R26.81 Unsteadiness on feet F17.211 Nicotine dependence, cigarettes, in remission J30.9 Allergic rhinitis, unspecified R06.02 Shortness of breath R10.84 Generalized abdominal pain H66.93 Otitis media, unspecified, bilateral J20.9 Acute bronchitis, unspecified J01.40 Acute pansinusitis, unspecified Office Visit 02/06/2016 3:30p [facility] Jesus Landrum0.Mona Acute bronchitisPrince M.D. unspecified J30.9 Allergic rhinitis, unspecified R06.02 Shortness of breath R05 Cough R09.81 Nasal congestion J01.40 Acute pansinusitis, unspecified J44.9 Chronic obstructive pulmonary disease, unspecified M25.552 Pain in left hip M79.606 Pain in leg, unspecified M15.9 Polyosteoarthritis, unspecified M54.2 Cervicalgia M54.5 Low back pain I50.42 Chronic combined systolic and diastolic hrt fail F41.9 Anxiety disorder, unspecified J30.2 Other seasonal allergic rhinitis E87.6 Hypokalemia E83.42 Hypomagnesemia F33.9 Major depressive disorder, recurrent, unspecified Z93.3 Colostomy status Z96.642 Presence of left artificial hip joint R73.01 Impaired fasting glucose R26.89 Other abnormalities of gait and mobility R26.81 Unsteadiness on feet F17.211 Nicotine dependence, cigarettes, in remission Office Visit 01/15/2016 11:30a [facility] Jesus Landrum J20.Mona Acute bronchitisPrince M.D. unspecified H66.93 Otitis media, unspecified, bilateral J01.40 Acute pansinusitis, unspecified J44.9 Chronic obstructive pulmonary disease, unspecified R05 Cough M25.552 Pain in left hip M79.606 Pain in leg, unspecified M15.9 Polyosteoarthritis, unspecified M54.2 Cervicalgia M54.5 Low back pain I50.42 Chronic combined systolic and diastolic hrt fail F41.9 Anxiety disorder, unspecified J30.2 Other seasonal allergic rhinitis E87.6 Hypokalemia E83.42 Hypomagnesemia F33.9 Major depressive disorder, recurrent, unspecified Z93.3 Colostomy status R09.81 Nasal congestion R06.02 Shortness of breath Z96.642 Presence of left artificial hip joint R73.01 Impaired fasting glucose R26.89 Other abnormalities of gait and mobility R26.81 Unsteadiness on feet F17.211 Nicotine dependence, cigarettes, in remission Office Visit 12/04/2015 2:45p [facility] Jesus Landrum J20.9 Acute bronchitisPrince M.D. unspecified H66.93 Otitis media, unspecified, bilateral J01.40 Acute pansinusitis, unspecified J44.9 Chronic obstructive pulmonary disease, unspecified R05 Cough M25.552 Pain in left hip M79.606 Pain in leg, unspecified M15.9 Polyosteoarthritis, unspecified M54.2 Cervicalgia M54.5 Low back pain I50.42 Chronic combined systolic and diastolic hrt fail F41.9 Anxiety disorder, unspecified J30.2 Other seasonal allergic rhinitis E87.6 Hypokalemia E83.42 Hypomagnesemia F33.9 Major depressive disorder, recurrent, unspecified Z93.3 Colostomy status R09.81 Nasal congestion R06.02 Shortness of breath Z96.642 Presence of left artificial hip joint R73.01 Impaired fasting glucose R26.89 Other abnormalities of gait and mobility R26.81 Unsteadiness on feet F17.211 Nicotine dependence, cigarettes, in remission Office Visit 10/30/2015 11:00a [facility] Jesus Landrum J20.9 Acute bronchitisPrince M.D. unspecified H66.93 Otitis media, unspecified, bilateral J01.40 Acute pansinusitis, unspecified J44.9 Chronic obstructive pulmonary disease, unspecified R05 Cough M25.552 Pain in left hip M79.606 Pain in leg, unspecified M15.9 Polyosteoarthritis, unspecified M54.2 Cervicalgia M54.5 Low back pain I50.42 Chronic combined systolic and diastolic hrt fail F41.9 Anxiety disorder, unspecified J30.2 Other seasonal allergic rhinitis E87.6 Hypokalemia E83.42 Hypomagnesemia F33.9 Major depressive disorder, recurrent, unspecified Z93.3 Colostomy status R09.81 Nasal congestion R06.02 Shortness of breath Z96.642 Presence of left artificial hip joint R73.01 Impaired fasting glucose Office Visit 10/13/2015 9:15a [facility] Jesus Landrum Z00.01 Encounter for Tobi Morrison general adult medical exam w abnormal findings J44.9 Chronic obstructive pulmonary disease, unspecified R05 Cough M25.552 Pain in left hip M79.606 Pain in leg, unspecified M15.9 Polyosteoarthritis, unspecified M54.2 Cervicalgia M54.5 Low back pain I50.42 Chronic combined systolic and diastolic hrt fail F41.9 Anxiety disorder, unspecified J30.2 Other seasonal allergic rhinitis Z68.26 Body mass index (BMI) 26.0-26.9, adult E87.6 Hypokalemia E83.42 Hypomagnesemia F33.9 Major depressive disorder, recurrent, unspecified Z93.3 Colostomy status R09.81 Nasal congestion R06.02 Shortness of breath Z96.642 Presence of left artificial hip joint R73.01 Impaired fasting glucose Office Visit 10/03/2015 11:45a [facility] Jesus Landrum J44.9 Wili obstructive Tobi Morrison pulmonary disease, unspecified R05 Cough M25.552 Pain in left hip M79.606 Pain in leg, unspecified M15.9 Polyosteoarthritis, unspecified M54.2 Cervicalgia M54.5 Low back pain I50.42 Chronic combined systolic and diastolic hrt fail F41.9 Anxiety disorder, unspecified J30.2 Other seasonal allergic rhinitis E87.6 Hypokalemia E83.42 Hypomagnesemia F33.9 Major depressive disorder, recurrent, unspecified Z93.3 Colostomy status R09.81 Nasal congestion R06.02 Shortness of breath Z96.642 Presence of left artificial hip joint Office Visit 07/29/2015 2:15p [facility] Jesus Landrum J44.9 Chronic obstructive M., M.D. pulmonary disease, unspecified J01.40 Acute pansinusitis, unspecified H66.93 Otitis media, unspecified, bilateral J20.9 Acute bronchitis, unspecified R05 Cough M25.552 Pain in left hip M79.606 Pain in leg, unspecified M15.9 Polyosteoarthritis, unspecified M54.2 Cervicalgia M54.5 Low back pain I50.42 Chronic combined systolic and diastolic hrt fail F41.9 Anxiety disorder, unspecified J30.2 Other seasonal allergic rhinitis E87.6 Hypokalemia E83.42 Hypomagnesemia F33.9 Major depressive disorder, recurrent, unspecified Z93.3 Colostomy status R09.81 Nasal congestion R06.02 Shortness of breath Z96.642 Presence of left artificial hip joint Office Visit 06/26/2015 2:15p [facility] DialloAustenelio J01.40 Acute pansinusitis, M., M.D. unspecified H66.93 Otitis media, unspecified, bilateral J20.9 Acute bronchitis, unspecified R05 Cough M25.552 Pain in left hip M79.606 Pain in leg, unspecified J44.9 Chronic obstructive pulmonary disease, unspecified M15.9 Polyosteoarthritis, unspecified M54.2 Cervicalgia M54.5 Low back pain I50.42 Chronic combined systolic and diastolic hrt fail F41.9 Anxiety disorder, unspecified J30.2 Other seasonal allergic rhinitis E87.6 Hypokalemia E83.42 Hypomagnesemia F33.9 Major depressive disorder, recurrent, unspecified Z93.3 Colostomy status R09.81 Nasal congestion R06.02 Shortness of breath Z96.642 Presence of left artificial hip joint Office Visit 04/24/2015 2:00p [facility] DialloAusten valenzuelaelio M., M25.552 Pain in left M.D. hip M79.606 Pain in leg, unspecified J44.9 Chronic obstructive pulmonary disease, unspecified M15.9 Polyosteoarthritis, unspecified M54.2 Cervicalgia M54.5 Low back pain I50.42 Chronic combined systolic and diastolic hrt fail F41.9 Anxiety disorder, unspecified J30.2 Other seasonal allergic rhinitis E87.6 Hypokalemia E83.42 Hypomagnesemia F33.9 Major depressive disorder, recurrent, unspecified Z93.3 Colostomy status R09.81 Nasal congestion R06.02 Shortness of breath Z01.818 Encounter for other preprocedural examination Office Visit 04/03/2015 11:45a [facility] Jesus Landrum J01.40 Acute pansinusitis, Margi Morrison. unspecified H66.93 Otitis media, unspecified, bilateral J20.9 Acute bronchitis, unspecified R05 Cough R06.02 Shortness of breath R09.81 Nasal congestion M25.552 Pain in left hip M79.606 Pain in leg, unspecified J44.9 Chronic obstructive pulmonary disease, unspecified M15.9 Polyosteoarthritis, unspecified M54.2 Cervicalgia M54.5 Low back pain I50.42 Chronic combined systolic and diastolic hrt fail F41.9 Anxiety disorder, unspecified J30.2 Other seasonal allergic rhinitis E87.6 Hypokalemia E83.42 Hypomagnesemia F33.9 Major depressive disorder, recurrent, unspecified Z28.21 Immunization not carried out because of patient refusal Z93.3 Colostomy status Office Visit 03/03/2015 2:30p [facility] Jesus Landrum, 719.45 Pain Joint M.D. Pelvic Region & Thigh 729.5 Pain In Limb 786.05 Shortness Of Breath 496 COPD Airway Obstruction Chronic Not Class Elsewhere 715.90 Osteoarthrosis Unspec Genlzd Or Localized Site Unspec 723.1 Cervicalgia 724.2 Lumbago 428.0 Congestive Heart Failure Unspecified 300.00 Anxiety State Unspec 311 Depressive Disorder Not Elsewhere Spec 477.8 Rhinitis Allergic Due To Other Allergen 276.8 Hypopotassemia 275.2 Metabolic Disorder Magnesium Office Visit 02/21/2015 3:30p [facility] Jesus Landrum 843.0 Sprains & Strains Prince MorrisonD. Hip & Thigh Iliofemoral (Ligament) 729.5 Pain In Limb 786.05 Shortness Of Breath 496 COPD Airway Obstruction Chronic Not Class Elsewhere 715.90 Osteoarthrosis Unspec Genlzd Or Localized Site Unspec 723.1 Cervicalgia 724.2 Lumbago 428.0 Congestive Heart Failure Unspecified 300.00 Anxiety State Unspec 311 Depressive Disorder Not Elsewhere Spec 477.8 Rhinitis Allergic Due To Other Allergen 276.8 Hypopotassemia 275.2 Metabolic Disorder Magnesium Office Visit 02/10/2015 4:30p [facility] Jesus Landrum 843.0 Sprains & Strains Tobi Morrison Hip & Thigh Iliofemoral (Ligament) 729.5 Pain In Limb 786.05 Shortness Of Breath 496 COPD Airway Obstruction Chronic Not Class Elsewhere 715.90 Osteoarthrosis Unspec Genlzd Or Localized Site Unspec 723.1 Cervicalgia 724.2 Lumbago 428.0 Congestive Heart Failure Unspecified 300.00 Anxiety State Unspec Office Visit 01/21/2015 11:45a [facility] Anupam Soto 786.05 Shortness Of [employer] SALES REPRESENTATIVE Breath 496 COPD Airway Obstruction Chronic Not Class Elsewhere 715.90 Osteoarthrosis Unspec Genlzd Or Localized Site Unspec 723.1 Cervicalgia 724.2 Lumbago 428.0 Congestive Heart Failure Unspecified 300.00 Anxiety State Unspec Office Visit 11/07/2014 4:15p [facility] Jesus Landrum 786.05 Shortness Of M., M.D. Breath 786.2 Cough 478.19 Other Disease Of Nasal Cavity And Sinuses 491.21 Bronchitis Obstructive Chronic W/Acute Exacerbation 461.8 Sinusitis Acute Other 382.9 Otitis Media Unspec 496 COPD Airway Obstruction Chronic Not Class Elsewhere 477.8 Rhinitis Allergic Due To Other Allergen 715.90 Osteoarthrosis Unspec Genlzd Or Localized Site Unspec 723.1 Cervicalgia 724.2 Lumbago 428.0 Congestive Heart Failure Unspecified 300.00 Anxiety State Unspec 276.8 Hypopotassemia 311 Depressive Disorder Not Elsewhere Spec 275.2 Metabolic Disorder Magnesium Office Visit 10/08/2014 4:45p [facility] Jesus Landrum 786.05 Shortness Of M., M.D. Breath 786.2 Cough 478.19 Other Disease Of Nasal Cavity And Sinuses 491.21 Bronchitis Obstructive Chronic W/Acute Exacerbation 496 COPD Airway Obstruction Chronic Not Class Elsewhere 477.8 Rhinitis Allergic Due To Other Allergen 715.90 Osteoarthrosis Unspec Genlzd Or Localized Site Unspec 723.1 Cervicalgia 724.2 Lumbago 428.0 Congestive Heart Failure Unspecified 300.00 Anxiety State Unspec 276.8 Hypopotassemia 311 Depressive Disorder Not Elsewhere Spec 275.2 Metabolic Disorder Magnesium 110.5 Dermatophytosis Body Office Visit 08/08/2014 2:00p [facility] Jesus Landrum 786.05 Shortness Of M., M.D. Breath 786.2 Cough 478.19 Other Disease Of Nasal Cavity And Sinuses 491.21 Bronchitis Obstructive Chronic W/Acute Exacerbation 496 COPD Airway Obstruction Chronic Not Class Elsewhere 477.8 Rhinitis Allergic Due To Other Allergen 715.90 Osteoarthrosis Unspec Genlzd Or Localized Site Unspec 723.1 Cervicalgia 724.2 Lumbago 428.0 Congestive Heart Failure Unspecified 300.00 Anxiety State Unspec 276.8 Hypopotassemia 311 Depressive Disorder Not Elsewhere Spec 275.2 Metabolic Disorder Magnesium 110.5 Dermatophytosis Body 112.1 Candidiasis The Vulva & Vagina Office Visit 07/23/2014 9:45a [facility] Jesus Landrum, 486 Pneumonia Organism M.D. Unspec 487.0 Influenza W/ Pneumonia 786.05 Shortness Of Breath 786.2 Cough 382.9 Otitis Media Unspec 461.8 Sinusitis Acute Other 478.19 Other Disease Of Nasal Cavity And Sinuses 491.21 Bronchitis Obstructive Chronic W/Acute Exacerbation 496 COPD Airway Obstruction Chronic Not Class Elsewhere 477.8 Rhinitis Allergic Due To Other Allergen 715.90 Osteoarthrosis Unspec Genlzd Or Localized Site Unspec 723.1 Cervicalgia 724.2 Lumbago 428.0 Congestive Heart Failure Unspecified 300.00 Anxiety State Unspec 305.1 Tobacco Use Disorder 276.8 Hypopotassemia 311 Depressive Disorder Not Elsewhere Spec 275.2 Metabolic Disorder Magnesium 110.5 Dermatophytosis Body 112.1 Candidiasis The Vulva & Vagina V70.0 Examination General Medical Routine AT Health Care Facility Office Visit 07/09/2014 2:00p [facility] Jesus Landrum, 486 Pneumonia Organism M.D. Unspec 487.0 Influenza W/ Pneumonia 786.05 Shortness Of Breath 786.2 Cough 382.9 Otitis Media Unspec 461.8 Sinusitis Acute Other 478.19 Other Disease Of Nasal Cavity And Sinuses 491.21 Bronchitis Obstructive Chronic W/Acute Exacerbation 496 COPD Airway Obstruction Chronic Not Class Elsewhere 477.8 Rhinitis Allergic Due To Other Allergen 715.90 Osteoarthrosis Unspec Genlzd Or Localized Site Unspec 723.1 Cervicalgia 724.2 Lumbago 428.0 Congestive Heart Failure Unspecified 300.00 Anxiety State Unspec 305.1 Tobacco Use Disorder 276.8 Hypopotassemia 311 Depressive Disorder Not Elsewhere Spec 275.2 Metabolic Disorder Magnesium 110.5 Dermatophytosis Body Office Visit 04/30/2014 2:15p [facility] Jesus Landrum 786.05 Shortness Of M., M.D. Breath 786.2 Cough 382.9 Otitis Media Unspec 461.8 Sinusitis Acute Other 478.19 Other Disease Of Nasal Cavity And Sinuses 491.21 Bronchitis Obstructive Chronic W/Acute Exacerbation 496 COPD Airway Obstruction Chronic Not Class Elsewhere 477.8 Rhinitis Allergic Due To Other Allergen 715.90 Osteoarthrosis Unspec Genlzd Or Localized Site Unspec 723.1 Cervicalgia 724.2 Lumbago 428.0 Congestive Heart Failure Unspecified 300.00 Anxiety State Unspec 305.1 Tobacco Use Disorder 276.8 Hypopotassemia 311 Depressive Disorder Not Elsewhere Spec 275.2 Metabolic Disorder Magnesium 110.5 Dermatophytosis Body V64.06 Vaccination Not Carried Out Because Of Patient Refusal Office Visit 01/22/2014 2:45p [facility] Earnestine Ulloa, 491.1 Bronchitis [employer] SALES REPRESENTATIVE Mucopurulent Chronic 786.05 Shortness Of Breath 496 COPD Airway Obstruction Chronic Not Class Elsewhere 300.00 Anxiety State Unspec 305.1 Tobacco Use Disorder 311 Depressive Disorder Not Elsewhere Spec 428.0 Congestive Heart Failure Unspecified 276.8 Hypopotassemia 380.4 Impacted Cerumen Office Visit 11/02/2013 2:15p [facility] Jesus Landrum 428.0 Congestive Heart M., M.D. Failure Unspecified 491.21 Bronchitis Obstructive Chronic W/Acute Exacerbation 496 COPD Airway Obstruction Chronic Not Class Elsewhere 786.05 Shortness Of Breath 477.8 Rhinitis Allergic Due To Other Allergen 305.1 Tobacco Use Disorder 300.00 Anxiety State Unspec 311 Depressive Disorder Not Elsewhere Spec 692.9 Dermatitis Unspec Cause Due To Spec Agents Other 715.90 Osteoarthrosis Unspec Genlzd Or Localized Site Unspec 723.1 Cervicalgia 276.8 Hypopotassemia 719.41 Pain Joint Shoulder Region Office Visit 09/06/2013 3:30p [facility] Araceli Hamm, 724.5 Backache Unspec [employer] SALES REPRESENTATIVE 790.6 Abnormal Blood Chemistry Other 724.2 Lumbago 272.0 Hypercholesterolemia Pure 428.0 Congestive Heart Failure Unspecified 715.90 Osteoarthrosis Unspec Genlzd Or Localized Site Unspec 692.9 Dermatitis Unspec Cause Due To Spec Agents Other 723.1 Cervicalgia 300.00 Anxiety State Unspec 786.05 Shortness Of Breath 311 Depressive Disorder Not Elsewhere Spec 719.41 Pain Joint Shoulder Region 788.30 Incontinence Urinary Unspec 276.8 Hypopotassemia 491.21 Bronchitis Obstructive Chronic W/Acute Exacerbation 477.9 Rhinitis Allergic Cause Unspec 110.3 Dermatophytosis Groin & Perianal Area 305.1 Tobacco Use Disorder 691.8 Dermatitis Atopic & Related Conditions Other Office Visit 08/20/2013 1:30p [facility] Araceli Hamm, 724.5 Backache Unspec [employer] SALES REPRESENTATIVE 790.6 Abnormal Blood Chemistry Other 428.0 Congestive Heart Failure Unspecified 723.1 Cervicalgia 724.2 Lumbago 272.0 Hypercholesterolemia Pure 715.90 Osteoarthrosis Unspec Genlzd Or Localized Site Unspec 692.9 Dermatitis Unspec Cause Due To Spec Agents Other 300.00 Anxiety State Unspec 786.05 Shortness Of Breath 311 Depressive Disorder Not Elsewhere Spec 305.1 Tobacco Use Disorder 719.41 Pain Joint Shoulder Region 788.30 Incontinence Urinary Unspec 276.8 Hypopotassemia 491.21 Bronchitis Obstructive Chronic W/Acute Exacerbation 477.9 Rhinitis Allergic Cause Unspec 110.3 Dermatophytosis Groin & Perianal Area 691.8 Dermatitis Atopic & Related Conditions Other Office Visit 08/01/2013 2:15p [facility] Araceli Hamm, 724.5 Backache Unspec [employer] SALES REPRESENTATIVE 790.6 Abnormal Blood Chemistry Other 428.0 Congestive Heart Failure Unspecified 723.1 Cervicalgia 724.2 Lumbago 272.0 Hypercholesterolemia Pure 715.90 Osteoarthrosis Unspec Genlzd Or Localized Site Unspec 692.9 Dermatitis Unspec Cause Due To Spec Agents Other 300.00 Anxiety State Unspec 786.05 Shortness Of Breath 311 Depressive Disorder Not Elsewhere Spec 305.1 Tobacco Use Disorder 719.41 Pain Joint Shoulder Region 788.30 Incontinence Urinary Unspec 276.8 Hypopotassemia 491.21 Bronchitis Obstructive Chronic W/Acute Exacerbation 477.9 Rhinitis Allergic Cause Unspec Office Visit 05/22/2013 2:00p [facility] Araceli Hamm, 790.6 Abnormal Blood PRINTING SUPPLIES SALES REPRESENTATIVE Chemistry Other 428.0 Congestive Heart Failure Unspecified 723.1 Cervicalgia 724.2 Lumbago 272.0 Hypercholesterolemia Pure 715.90 Osteoarthrosis Unspec Genlzd Or Localized Site Unspec 382.9 Otitis Media Unspec 692.9 Dermatitis Unspec Cause Due To Spec Agents Other 300.00 Anxiety State Unspec 786.05 Shortness Of Breath 311 Depressive Disorder Not Elsewhere Spec 719.41 Pain Joint Shoulder Region 305.1 Tobacco Use Disorder 788.30 Incontinence Urinary Unspec 276.8 Hypopotassemia 491.21 Bronchitis Obstructive Chronic W/Acute Exacerbation 477.9 Rhinitis Allergic Cause Unspec Office Visit 05/03/2013 3:45p [facility] Sapphire Hammnifer, 790.6 Abnormal Blood PRINTING SUPPLIES SALES REPRESENTATIVE Chemistry Other 428.0 Congestive Heart Failure Unspecified 723.1 Cervicalgia 724.2 Lumbago 272.0 Hypercholesterolemia Pure 715.90 Osteoarthrosis Unspec Genlzd Or Localized Site Unspec 382.9 Otitis Media Unspec 692.9 Dermatitis Unspec Cause Due To Spec Agents Other 300.00 Anxiety State Unspec 311 Depressive Disorder Not Elsewhere Spec 719.41 Pain Joint Shoulder Region 788.30 Incontinence Urinary Unspec 276.8 Hypopotassemia 786.2 Cough 786.05 Shortness Of Breath 491.21 Bronchitis Obstructive Chronic W/Acute Exacerbation 305.1 Tobacco Use Disorder 477.9 Rhinitis Allergic Cause Unspec Office Visit 03/30/2013 2:45p [facility] Araceli Hamm FNP 786.2 Cough 786.05 Shortness Of Breath 491.21 Bronchitis Obstructive Chronic W/Acute Exacerbation 461.9 Sinusitis Acute Unspec 276.7 Hyperpotassemia 790.6 Abnormal Blood Chemistry Other 428.0 Congestive Heart Failure Unspecified 723.1 Cervicalgia 724.2 Lumbago 272.0 Hypercholesterolemia Pure 715.90 Osteoarthrosis Unspec Genlzd Or Localized Site Unspec 692.9 Dermatitis Unspec Cause Due To Spec Agents Other 300.00 Anxiety State Unspec 311 Depressive Disorder Not Elsewhere Spec 719.41 Pain Joint Shoulder Region 788.30 Incontinence Urinary Unspec Office Visit 02/28/2013 10:15a [facility] Araceli Hamm FNP 786.2 Cough 786.05 Shortness Of Breath 491.21 Bronchitis Obstructive Chronic W/Acute Exacerbation 428.0 Congestive Heart Failure Unspecified 478.19 Other Disease Of Nasal Cavity And Sinuses 723.1 Cervicalgia 724.2 Lumbago 715.90 Osteoarthrosis Unspec Genlzd Or Localized Site Unspec 305.1 Tobacco Use Disorder 692.9 Dermatitis Unspec Cause Due To Spec Agents Other 300.00 Anxiety State Unspec 496 COPD Airway Obstruction Chronic Not Class Elsewhere 311 Depressive Disorder Not Elsewhere Spec 272.0 Hypercholesterolemia Pure V76.10 Screening For Malignant Neoplasm Breast 276.8 Hypopotassemia 682.8 Cellulitis & Abscess Other Spec Sites Office Visit 02/21/2013 10:45a [facility] Araceli Hamm FNP 786.2 Cough 786.05 Shortness Of Breath 491.21 Bronchitis Obstructive Chronic W/Acute Exacerbation 428.0 Congestive Heart Failure Unspecified 478.19 Other Disease Of Nasal Cavity And Sinuses 723.1 Cervicalgia 724.2 Lumbago 715.90 Osteoarthrosis Unspec Genlzd Or Localized Site Unspec 305.1 Tobacco Use Disorder 692.9 Dermatitis Unspec Cause Due To Spec Agents Other 300.00 Anxiety State Unspec 496 COPD Airway Obstruction Chronic Not Class Elsewhere 311 Depressive Disorder Not Elsewhere Spec 272.0 Hypercholesterolemia Pure V76.10 Screening For Malignant Neoplasm Breast 276.8 Hypopotassemia Office Visit 02/12/2013 3:45p [facility] Araceli Hamm FNP 786.2 Cough 786.05 Shortness Of Breath 491.21 Bronchitis Obstructive Chronic W/Acute Exacerbation 428.0 Congestive Heart Failure Unspecified 478.19 Other Disease Of Nasal Cavity And Sinuses 723.1 Cervicalgia 724.2 Lumbago 715.90 Osteoarthrosis Unspec Genlzd Or Localized Site Unspec 305.1 Tobacco Use Disorder 692.9 Dermatitis Unspec Cause Due To Spec Agents Other 300.00 Anxiety State Unspec 496 COPD Airway Obstruction Chronic Not Class Elsewhere 311 Depressive Disorder Not Elsewhere Spec 272.0 Hypercholesterolemia Pure Office Visit 01/05/2013 10:45a [facility] Araceli Hamm, 786.05 Shortness Of PRINTING SUPPLIES SALES REPRESENTATIVE Breath 786.2 Cough 478.19 Other Disease Of Nasal Cavity And Sinuses 491.21 Bronchitis Obstructive Chronic W/Acute Exacerbation 428.0 Congestive Heart Failure Unspecified 723.1 Cervicalgia 724.2 Lumbago 715.90 Osteoarthrosis Unspec Genlzd Or Localized Site Unspec 692.9 Dermatitis Unspec Cause Due To Spec Agents Other 305.1 Tobacco Use Disorder 300.00 Anxiety State Unspec 496 COPD Airway Obstruction Chronic Not Class Elsewhere 311 Depressive Disorder Not Elsewhere Spec 272.0 Hypercholesterolemia Pure Office Visit 12/12/2012 3:15p [facility] Araceli Hamm, 786.05 Shortness Of PRINTING SUPPLIES SALES REPRESENTATIVE Breath 786.2 Cough 478.19 Other Disease Of Nasal Cavity And Sinuses 491.21 Bronchitis Obstructive Chronic W/Acute Exacerbation 305.1 Tobacco Use Disorder 496 COPD Airway Obstruction Chronic Not Class Elsewhere 428.0 Congestive Heart Failure Unspecified 723.1 Cervicalgia 724.2 Lumbago 715.90 Osteoarthrosis Unspec Genlzd Or Localized Site Unspec 692.9 Dermatitis Unspec Cause Due To Spec Agents Other 300.00 Anxiety State Unspec 311 Depressive Disorder Not Elsewhere Spec 272.0 Hypercholesterolemia Pure Office Visit 11/23/2012 2:45p [facility] Jesus Landrum, 466.0 Bronchitis Acute M.D. 461.8 Sinusitis Acute Other 382.9 Otitis Media Unspec 786.05 Shortness Of Breath 786.2 Cough 478.19 Other Disease Of Nasal Cavity And Sinuses 491.21 Bronchitis Obstructive Chronic W/Acute Exacerbation 305.1 Tobacco Use Disorder 496 COPD Airway Obstruction Chronic Not Class Elsewhere 428.0 Congestive Heart Failure Unspecified 723.1 Cervicalgia 724.2 Lumbago 715.90 Osteoarthrosis Unspec Genlzd Or Localized Site Unspec 692.9 Dermatitis Unspec Cause Due To Spec Agents Other 300.00 Anxiety State Unspec 311 Depressive Disorder Not Elsewhere Spec Office Visit 10/26/2012 3:00p [facility] Jesus Landrum, 466.0 Bronchitis Acute M.D. 461.8 Sinusitis Acute Other 382.9 Otitis Media Unspec 786.05 Shortness Of Breath 786.2 Cough 478.19 Other Disease Of Nasal Cavity And Sinuses 491.21 Bronchitis Obstructive Chronic W/Acute Exacerbation 305.1 Tobacco Use Disorder 496 COPD Airway Obstruction Chronic Not Class Elsewhere 428.0 Congestive Heart Failure Unspecified 723.1 Cervicalgia 724.2 Lumbago 715.90 Osteoarthrosis Unspec Genlzd Or Localized Site Unspec 692.9 Dermatitis Unspec Cause Due To Spec Agents Other 300.00 Anxiety State Unspec 311 Depressive Disorder Not Elsewhere Spec Office Visit 09/26/2012 2:00p [facility] Jesus Landrum M.D. 786.2 Cough 305.1 Tobacco Use Disorder 786.05 Shortness Of Breath 382.9 Otitis Media Unspec 477.8 Rhinitis Allergic Due To Other Allergen 496 COPD Airway Obstruction Chronic Not Class Elsewhere 300.00 Anxiety State Unspec 780.79 Malaise And Fatigue Other 478.19 Other Disease Of Nasal Cavity And Sinuses 782.3 Edema 428.0 Congestive Heart Failure Unspecified 692.9 Dermatitis Unspec Cause Due To Spec Agents Other Office Visit 09/12/2012 2:00p [facility] Jesus Landrum M.D. 786.2 Cough 305.1 Tobacco Use Disorder 786.05 Shortness Of Breath 382.9 Otitis Media Unspec 477.8 Rhinitis Allergic Due To Other Allergen 496 COPD Airway Obstruction Chronic Not Class Elsewhere 300.00 Anxiety State Unspec 780.79 Malaise And Fatigue Other 478.19 Other Disease Of Nasal Cavity And Sinuses 782.3 Edema 428.0 Congestive Heart Failure Unspecified Office Visit 08/29/2012 3:00p [facility] Jesus Landrum 491.21 Bronchitis Tobi Morrison Obstructive Chronic W/Acute Exacerbation 786.2 Cough 305.1 Tobacco Use Disorder 786.05 Shortness Of Breath 382.9 Otitis Media Unspec 477.8 Rhinitis Allergic Due To Other Allergen 496 COPD Airway Obstruction Chronic Not Class Elsewhere 300.00 Anxiety State Unspec 780.79 Malaise And Fatigue Other Office Visit 07/25/2012 2:15p [facility] Jesus Landrum 491.21 Bronchitis Tobi Morrison Obstructive Chronic W/Acute Exacerbation 786.2 Cough 305.1 Tobacco Use Disorder 466.0 Bronchitis Acute 461.8 Sinusitis Acute Other 382.9 Otitis Media Unspec 786.05 Shortness Of Breath 477.8 Rhinitis Allergic Due To Other Allergen 723.1 Cervicalgia 724.2 Lumbago 715.90 Osteoarthrosis Unspec Genlzd Or Localized Site Unspec 300.00 Anxiety State Unspec Office Visit 07/13/2012 2:15p [facility] Jesus Landrum 491.21 Bronchitis Tobi Morrison Obstructive Chronic W/Acute Exacerbation 786.2 Cough 496 COPD Airway Obstruction Chronic Not Class Elsewhere 305.1 Tobacco Use Disorder 466.0 Bronchitis Acute 461.8 Sinusitis Acute Other 382.9 Otitis Media Unspec 388.70 Otalgia & Earache Unspec 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 723.1 Cervicalgia 300.00 Anxiety State Unspec 724.2 Lumbago 786.05 Shortness Of Breath 477.8 Rhinitis Allergic Due To Other Allergen Office Visit 04/17/2012 Agatha Callaway [facility] 491.21 Bronchitis 1:30p Office Obstructive Chronic W/Acute Exacerbation 786.2 Cough 496 COPD Airway Obstruction Chronic Not Class Elsewhere 305.1 Tobacco Use Disorder 715.90 Osteoarthrosis Unspec Genlzd Or Localized Site Unspec 569.69 Colostomy & Enterostomy Complication Other 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 723.1 Cervicalgia 300.00 Anxiety State Unspec 724.2 Lumbago Office Visit 04/03/2012 Agatha Callaway [facility] 491.21 Bronchitis 2:00p Office Obstructive Chronic W/Acute Exacerbation 466.0 Bronchitis Acute 786.2 Cough 496 COPD Airway Obstruction Chronic Not Class Elsewhere 305.1 Tobacco Use Disorder 715.90 Osteoarthrosis Unspec Genlzd Or Localized Site Unspec 569.69 Colostomy & Enterostomy Complication Other 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 723.1 Cervicalgia 300.00 Anxiety State Unspec 724.2 Lumbago Office Visit 03/10/2012 Agatha Callaway [facility] 491.21 Bronchitis 2:00p Office Obstructive Chronic W/Acute Exacerbation 466.0 Bronchitis Acute 786.2 Cough 786.05 Shortness Of Breath 496 COPD Airway Obstruction Chronic Not Class Elsewhere 305.1 Tobacco Use Disorder Office Visit 02/18/2012 Agatha Callaway [facility] 491.21 Bronchitis 4:15p Office Obstructive Chronic W/Acute Exacerbation 466.0 Bronchitis Acute 786.2 Cough 786.05 Shortness Of Breath 496 COPD Airway Obstruction Chronic Not Class Elsewhere 305.1 Tobacco Use Disorder 715.90 Osteoarthrosis Unspec Genlzd Or Localized Site Unspec 569.69 Colostomy & Enterostomy Complication Other 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 723.1 Cervicalgia 300.00 Anxiety State Unspec 724.2 Lumbago Office Visit 01/04/2012 10:30a [facility] Jesus Lnadrum 491.21 Bronchitis [place] MIrais Obstructive Chronic W/Acute Exacerbation 466.0 Bronchitis Acute 786.2 Cough 786.05 Shortness Of Breath 496 COPD Airway Obstruction Chronic Not Class Elsewhere 305.1 Tobacco Use Disorder 715.90 Osteoarthrosis Unspec Genlzd Or Localized Site Unspec 569.69 Colostomy & Enterostomy Complication Other 382.9 Otitis Media Unspec 110.5 Dermatophytosis Body 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 723.1 Cervicalgia 300.00 Anxiety State Unspec 724.2 Lumbago Office Visit 11/25/2011 10:45a [facility] Jesus Landrum, 305.1 Tobacco Use M.D. Disorder 715.90 Osteoarthrosis Unspec Genlzd Or Localized Site Unspec 300.00 Anxiety State Unspec 496 COPD Airway Obstruction Chronic Not Class Elsewhere 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 723.1 Cervicalgia Office Visit 10/22/2011 10:00a [facility] Jesus Landrum 715.90 Osteoarthrosis Unspec Luis M., M.D. Genlzd Or Localized Site Unspec 305.1 Tobacco Use Disorder 300.00 Anxiety State Unspec 569.69 Colostomy & Enterostomy Complication Other 496 COPD Airway Obstruction Chronic Not Class Elsewhere 477.8 Rhinitis Allergic Due To Other Allergen 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 723.1 Cervicalgia 110.5 Dermatophytosis Body 493.90 Asthma Unspec W/O Status Asthmaticus Office Visit 10/14/2011 2:15p [facility] Jesus Landrum M.D. 724.2 Lumbago 715.90 Osteoarthrosis Unspec Genlzd Or Localized Site Unspec 305.1 Tobacco Use Disorder 300.00 Anxiety State Unspec 569.69 Colostomy & Enterostomy Complication Other 496 COPD Airway Obstruction Chronic Not Class Elsewhere 477.8 Rhinitis Allergic Due To Other Allergen Office Visit 09/03/2011 11:15a [facility] Jesus Landrum, 466.0 Bronchitis Acute M.D. 491.21 Bronchitis Obstructive Chronic W/Acute Exacerbation 724.2 Lumbago 719.44 Pain Joint Hand Office Visit 08/17/2011 11:30a [facility] Jesus Landrum, 466.0 Bronchitis Acute M.D. 786.2 Cough 461.8 Sinusitis Acute Other 723.1 Cervicalgia Office Visit 06/18/2011 3:30p [facility] Anupam Soto 692.9 Dermatitis Unspec PRINTING SUPPLIES SALES REPRESENTATIVE Cause Due To Spec Agents Other 305.1 Tobacco Use Disorder Office Visit 05/11/2011 2:45p [facility] Jesus Landrum, 382.9 Otitis Media M.D. Unspec 491.21 Bronchitis Obstructive Chronic W/Acute Exacerbation 789.07 Pain Abdominal Generalized 692.9 Dermatitis Unspec Cause Due To Spec Agents Other Office Visit 03/10/2011 1:30p [facility] Anupam Soto PRINTING SUPPLIES SALES REPRESENTATIVE 555.9 Crohn' s Disease 569.69 Colostomy & Enterostomy Complication Other 496 COPD Airway Obstruction Chronic Not Class Elsewhere 110.5 Dermatophytosis Body 305.1 Tobacco Use Disorder V04.81 Need For Prophylactic Vaccination & Inoculation/Influenza Office Visit 02/17/2011 11:15a Anupam Sanon PRINTING SUPPLIES SALES REPRESENTATIVE 564.00 Constipation Unspecified 496 COPD Airway Obstruction Chronic Not Class Elsewhere 110.5 Dermatophytosis Body Office Visit 12/22/2010 2:15p [facility] Jesus Landrum M.D. 787.91 Diarrhea 496 COPD Airway Obstruction Chronic Not Class Elsewhere 789.07 Pain Abdominal Generalized 682.9 Cellulitis & Abscess Unspec Site Office Visit 11/10/2010 2:15p [facility] Jesus Landrum, 466.0 Bronchitis Acute M.D. 786.2 Cough 491.21 Bronchitis Obstructive Chronic W/Acute Exacerbation 719.45 Pain Joint Pelvic Region & Thigh Office Visit 10/27/2010 2:00p [facility] Jesus Landrum, 719.46 Pain Joint Lower M.D. Leg 786.05 Shortness Of Breath 466.0 Bronchitis Acute 491.21 Bronchitis Obstructive Chronic W/Acute Exacerbation 305.1 Tobacco Use Disorder Office Visit 10/13/2010 2:00p [facility] Jesus Landrum 786.05 Shortness Of M., M.D. Breath 491.21 Bronchitis Obstructive Chronic W/Acute Exacerbation 719.45 Pain Joint Pelvic Region & Thigh 719.46 Pain Joint Lower Leg Office Visit 09/29/2010 2:00p [facility] Jesus Landrum, 496 COPD Airway MIrais Obstruction Chronic Not Class Elsewhere 789.07 Pain Abdominal Generalized 682.9 Cellulitis & Abscess Unspec Site 719.41 Pain Joint Shoulder Region Plan of Treatment Future Appointment(s):07/11/2018 3:30 pm - Jesus Landrum M.D. at [facility]/08/2018 3:30 pm - Jesus Landrum M.D. at [id number]/06/2018 - Jesus Landrum M.D.I50.42 Chronic combined systolic (congestive) and diastolic (congesComments:F/U LABELEVATE LE PRNTED STOCKING / [place] WRAP PRN YZINUVT86.9 Chronic obstructive pulmonary disease, unspecifiedComments:INCREASE PO ZJVHNMSZWT29.01 Impaired fasting glucoseComments:F/U HGAICFS QAC AN HS PRNLOW GLUCOSE DIETL40.9 Psoriasis, unspecifiedComments:SKIN CARE INSTRUCTIONS LOTION OR BABY OIL 2-3 APPLICATION PER DAYUSE MOISTURIZING SOAPAVOID PROLONGED WATER EXPOSUREAVOID USING HOT WATER IN QTSWZHU63.9 Polyosteoarthritis, unspecifiedComments:EXERCISE/HEAT/MESSAGETYLENOL OR MOTRIN PRNAVOID HEAVY LIFTINGWT LOSSE55.9 Vitamin D deficiency, unspecifiedComments:INCREASE EXPOSURE TO SUNREVIEW OF DIETE83.42 HypomagnesemiaComments:F/U LABE78.2 Mixed hyperlipidemiaComments:DIET REVIEWED CONTINUE DIETWT LOSSF/U LAB FBWE87.6 HypokalemiaComments:F/U LAB DIETERY JCDQESYFWDE71.606 Pain in leg, unspecifiedComments:TYLENOL OR MOTRIN PRN EXERCISE/HEAT/TPAIKVEY23.3 Colostomy statusComments:COLOSTOMY CARE REVIEWED WITH PTSKIN CAREB35.4 Tinea corporisComments:SKIN CARE RWWDDCMGGQTKD44.9 Vitamin B deficiency, unspecifiedComments:COUNSELED RE DIET/ AVOID ALCOHOL USE F/U LABSJ30.2 Other seasonal allergic rhinitisComments:INCREASE PO FLUID USE ANTIHISTAMINE PRN SECOND HAND SMOKING QFZGCEVNTF28.5 Low back painComments:EXERCISE/HEAT / MESSAGEAVOID HEAVY LIFTING WT LOSSTYLENOL OR MOTRIN PRN DUR PNPMVQGS53.2 CervicalgiaComments:EXERCISE/HEAT /MESSAGEAVOID HEAVY LIFTING WT LOSSTYLENOL OR MOTRIN PRN DUR QOIMSISC44.642 Presence of left artificial hip jointComments :F/U WITH NKWNTY24.81 Unsteadiness on feetComments:SAFETY CLEAR PATH @ HOMEAVOID USE OF LOOSE RUGSUSE CANE /WALKER NEEDEDPROVIDE ADEQUATE LIGHT @ HOMEUSE WELL FITTED SHOESCONSIDER USE OF REMOTE CALLING DEVICEARRANGE FOR REGURAL CHECK UP BY FAMILY VAHID W/C RDXPFONPZ05.211 Nicotine dependence, cigarettes, in remissionComments:ENCOURAGED TO CONTINUE WITH SMOKING YAHLLMICTH76.02 Shortness of breathComments:INCREASE PO FLUIDRESTNEB OR MDI AND /OR OVSCBAJ57.9 Allergic rhinitis, unspecifiedComments:INCREASE PO FLUID USE ANTIHISTAMINE PRN SECOND HAND SMOKING FSBSTRJCCE65.552 Pain in left hipComments:EXERCISE/HEAT/MESSAGETYLENOL OR MOTRIN PRNAVOID HEAVY LIFTINGWT LOSSF41.9 Anxiety disorder, unspecifiedComments:COUNCELLING AND REASSURANCE RELAXATION TECHNIQUES DISCUSSEDCOUNSELED RE: STRESSORS IN LIFE AVOID ALLENERGY/ HIGH CAFFEINE DRINKS DUR GBGLEXHU72.89 Other abnormalities of gait and mobilityComments:SAFETY CLEAR PATH @ HOMEAVOID USE OF LOOSE RUGSUSE CANE / WALKER NEEDEDPROVIDE ADEQUATE LIGHT @ HOMEUSE WELL FITTED SHOESCONSIDER USE OF REMOTE CALLING DEVICEARRANGE FOR REGURAL CHECK UP BY FAMILY VAHID REULAS PRNF33.9 Major depressive disorder, recurrent, unspecifiedComments: COUNCELLING AND REASSURANCE RELAXATION TECHNIQUES DISCUSSED COUNSELED RE: STRESSORS IN [place]66.3 OverweightComments:WT LOSS OPTIONS EXERCISE INSTRUCTIONSDIET COUNCILLING DUR QOATIISY59.84 Generalized abdominal painComments:TYLENOL OR MOTRIN PRNINCREASE PO FLUIDLAXATIVE PRN F/U DIRECTEDF /U ACTOIPSND46.9 Acute bronchitis, unspecifiedComments:HGDXMUPLO53.9 Chest pain, unspecifiedNew Medication:Oxycodone-Acetaminophen 5-325 mg - 1 tab by mouth three times a day as neededComments:EXERCISE/HEAT/MESSAGE TYLENOL OR MOTRIN PRNHEAT PACKA04.71 Enterocolitis due to Clostridium difficile, recurrentNew Medication:Vancomycin HCL 125 mg - 1 cap by mouth four times a dayComments:CONTINUE WITH RXINCREASE PO FLUIDBRAT DIETR29.6 Repeated fallsComments:SAFETY CLEAR PATH @ HOMEAVOID USE OF LOOSE RUGSUSE CANE /WALKER NEEDEDPROVIDE ADEQUATE LIGHT @ HOMEUSE WELL FITTED SHOESCONSIDER USE OF REMOTE CALLING DEVICEARRANGE FOR REGURAL CHECK UP BY FAMILY ORFRIENDS USE WALKER
[2018-06-12] MEDS ORDERED: metroNIDAZOLE TAB* 250 MG PO ONE ×2 (18:57→19:06)
--- NOTE | 2018-06-12 18:57 | UC ---
Allergic Reaction HPI - HPI Summary HPI Summary: Patient is taking vancomycin for c diff, has been on it for the past 6 days, she has developed an all over body rash. She has COPD, is a bit short of breath. is on O2 at home, but did not bring it with her. Rash is itchy - History of Current Complaint Stated Complaint: POSSIBLE ALLERGIC REACTION Time Seen by Provider: 06/12/18 18:31 Hx Obtained From: Patient ?: No Onset/Duration: Sudden Onset, Lasting Days Severity Initially: Mild Severity Currently: Moderate Pain Intensity: 5 Character: Pruritus, Hives Aggravating Factor(s): Nothing Alleviating Factor(s): Nothing Associated Signs And Symptoms: Positive: Rash - Related Hx Possible Reaction To: Medications - Allergies/Home Medications Allergies/Adverse Reactions: Allergies Allergy/AdvReac Type Severity Reaction Status Date / Time latex Allergy Hives Verified 06/03/18 21:16 morphine Allergy Unknown Verified 06/03/18 21:16 Reaction Details Tetracyclines Allergy GI Upset Verified 06/03/18 21:16 vancomycin Allergy Hives/Diff. Verified 06/12/18 18:35 Breathing/I tching Home Medications: Home Medications Vancomycin HCl [Vancocin HCl-] 125 mg PO QID 06/12/18 [History Confirmed ] PMH/Surg Hx/FS Hx/Imm Hx Previously Healthy: Yes - Surgical History Surgical History: Yes Surgery Procedure, Year, and Place: ILEOSTOMY AND REVERSAL; RESECTION/COLOSTOMY ; R ROTOR CUFF SX; CYST REMOVED FROM RIGHT FOOT(NEUROMA? REMOVED FROM LEFT FOOT) ; CARPAL TUNNEL RELEASE RIGHT HAND. REMOVAL OF SKIN CANCERS FROM RIGHT SHOULDER AND NOSE. LT--2014 - Family History Known Family History: Positive: Diabetes - Social History Alcohol Use: Rare Substance Use Type: None Smoking Status (MU): Former Smoker Length of Time of Smoking/Using Tobacco: APPROX 45 YRS Have You Smoked in the Last Year: Yes When Did the Patient Quit Smoking/Using Tobacco: 06/2014 - Immunization History Most Recent Influenza Vaccination: SEVERL YRS AGO Most Recent Tetanus Shot: UNKNOWN Most Recent Pneumonia Vaccination: WITHIN 5 YRS Review of Systems All Other Systems Reviewed And Are Negative: Yes Constitutional: Positive: Negative Skin: Positive: Rash Eyes: Positive: Negative ENT: Positive: Negative Respiratory: Positive: Shortness Of Breath Cardiovascular: Positive: Negative Gastrointestinal: Positive: Negative Genitourinary: Positive: Negative Motor: Positive: Negative Neurovascular: Positive: Negative Musculoskeletal: Positive: Negative Neurological: Positive: Negative Psychological: Positive: Negative Is Patient Immunocompromised?: No Physical Exam Triage Information Reviewed: Yes Appearance: No Pain Distress, Ill-Appearing, Thin Vital Signs: Initial Vital Signs Temp 98.0 F 06/12/18 18:30 Pulse 32 06/12/18 18:30 Resp 111 06/12/18 18:30 BP 134/80 06/12/18 18:30 Pulse Ox 96 06/12/18 18:30 Vital Signs Reviewed: Yes Eye Exam: Normal ENT: Positive: Pharynx normal, TMs normal Dental Exam: Normal Neck exam: Normal Respiratory: Positive: Chest non-tender, Respiratory distress - mild, Wheezing, Inspiration Cardiovascular Exam: Normal Cardiovascular: Positive: No Murmur, Pulses Normal, Tachycardia Abdominal Exam: Normal Bowel Sounds: Positive: Present Musculoskeletal Exam: Normal Neurological Exam: Normal Psychological Exam: Normal Skin: Positive: Rashes - urticari on trunk, neck and extremities Allergic Reaction Course/Dx - Course Course Of Treatment: hx obtained, exam performed, meds reviewed, treated for allergic rxn with SOlumedrol and benadryl. - Differential Dx/Diagnosis Differential Diagnosis/HQI/PQRI: Anaphylaxis, Local Allergic Reaction, Urticaria Provider Diagnosis: C. difficile diarrhea, Allergic reaction caused by a drug Discharge - Sign-Out/Discharge Documenting (check all that apply): Patient Departure All imaging exams completed and their final reports reviewed: No Studies - Discharge Plan Condition: Stable Disposition: HOME Patient Education Materials: Antibiotic Medication Allergy (ED) Referrals: Jesus Landrum MD [Primary Care Provider] - Additional Instructions: 1. take the flagyl one one dose tonight 2. then take the Flagyl twice a day tomorrow and roller picker the prescription to continue after bethanie, 3. COntact your doctor to alert him to the allergic reaction and the change in medication. 4. If you develop any difficulty breathing please report to ER - Billing Disposition and Condition Condition: STABLE Disposition: Home
[2018-06-12] MEDS ORDERED: predniSONE TAB* 20 MG PO ONE (18:59)
== END 2018-06-12 19:33 | disposition home or self-care (01) ==
LOC: UCCORT 18:29
DX: L27.0 Generalized skin eruption due to drugs and medicaments taken internally (principal); T36.8X5A Adverse effect of other systemic antibiotics, initial encounter; Y92.009 Unspecified place in unspecified non-institutional (private) residence as the place of occurrence of the external cause; A04.72 Enterocolitis due to Clostridium difficile, not specified as recurrent; J44.9 Chronic obstructive pulmonary disease, unspecified; Z99.81 Dependence on supplemental oxygen; Z88.5 Allergy status to narcotic agent; Z88.1 Allergy status to other antibiotic agents; Z87.891 Personal history of nicotine dependence; Z85.828 Personal history of other malignant neoplasm of skin
CPT/HCPCS: 96372; 99213; A9270-GY; G0463; J2930; J7512